=== PATIENT | female | born 1985 | race Caucasian/White ===

== ENCOUNTER → 2017-01-29 | Outpatient (CLI) | payer OTHER ==
[2017-01-29 14:29] LABS: CH 29.5; CHCM 35.5; HCT 38.2 % (34.0-46.0); HDW 2.69; HGB 13.4 gm/dL (11.4-16.0); MCH 29.2 pg (25.0-35.0); MCV 83.4 fL (80.0-100.0); Mean Platelet Volume 7.2; RBC 4.58 m/uL (3.80-5.40); RDW 12.1 % (11.5-15.5); WBC 13.1 k/uL (3.8-10.6)
[2017-01-29 14:45] LABS: Glucose 101 mg/dL (74-99); Non-African American GFR(MDRD) >60 (>60 ml/min/1.73 sqM)
--- NOTE | 2017-01-29 15:11 | US ---
EXAMINATION TYPE: US OB <=14 wks transvag DATE OF EXAM: 01/29/2017 1:41 PM COMPARISON: NONE CLINICAL HISTORY: 31-year-old female with O46.91 Spotting. Date of LMP: 12/05/16 Beta HcG (if available): not available EXAM PERFORMED: Transvaginal (TV) and Transabdominal (TA) FINDINGS: EXAM MEASUREMENTS: GESTATIONAL AGE / DATING Physician Established: not yet established Dates by LMP: (7 weeks/6 days) EDC: 09/11/17 Dates by First Scan: 1st scan today Dates by Current Scan for: (7 weeks/1 days +/- 5D) EDC: 09/16/17 MATERNAL ANATOMY Uterus: 9.4 x 5.3 x 5.8cm Right Ovary: 2.4 x 2.0 x 2.1cm Left Ovary: not visualized Post CDS / Adnexa: wnl Presence of subchorionic bleed: Small measuring 1.0 x 0.3 x 1.5cm along the caudal margin of the gest ational sac. GESTATION / SURVEY CRL: 1.1 (7 weeks/1 days) MSD: Visually normal Yolk Sac (normal less than 6mm): 2.2 mm Heart Rate: 144 bpm Rhythm: Normal IUP: Viable IUP IMPRESSION: 1. Single live intrauterine with estimated gestational age of 7 weeks 6 days by LMP. Curren t ultrasound biometry is smaller and just barely concordant (7 weeks 1 day). Correlate for accuracy o f recall of LMP. 2. Small perigestational bleed. 3. Complete survey recommended at 18-20 weeks.
[2017-01-29 15:16] LABS: Hepatitis B Surface Ag Index 0.09
[2017-01-30 05:55] LABS: Toxoplasma Antibody (IgG) <3.0 IU/mL (<7.2)
[2017-01-30 07:44] LABS: HIV-1/HIV-2 Ab Screen NONREAC (NON REAC)
== END ==
LOC: RADUSWWP 12:53
PROVIDERS: ATTEND Obstetrics & Gynecology
DX: O46.91 Antepartum hemorrhage, unspecified, first trimester (principal)
CPT/HCPCS: 76801; 76817; 82565; 82947; 85027; 86762; 86777; 86778; 86780; 86850; 86900; 86901; 87340; 87389

== ENCOUNTER 2017-03-20 12:59 | Emergency (ER) | payer OTHER ==
[2017-03-20 13:27] VITALS: RESP 18
[2017-03-20] MEDS ORDERED: ALBUTEROL NEBULIZED 2.5 MG/3 ML INHALATION STA (13:45)
--- NOTE | 2017-03-20 13:56 | ED ---
SOB HPI - General Chief Complaint: Shortness of Breath Stated Complaint: SOB/Vomiting Time Seen by Provider: 03/20/17 13:33 Source: patient Mode of arrival: ambulatory Limitations: no limitations - History of Present Illness Initial Comments: This patient is a 31-year-old woman who presents because she feels she is having an asthma exacerbation. She states that about 4 days ago she started having upper respiratory symptoms, including cough and congestion. She was seen at an urgent care and she was started on azithromycin. She states that she is now on day 3 of that. Over the course of the past night into this morning she feels she is having increasing wheezing and chest tightness. She states that she also has a little bit of sputum production, being yellow. She is denying pain. Patient does state that she is proximal 14 weeks . She has not had any abdominal symptoms. No vaginal discharge or bleeding. No leg pain or swelling. MD Complaint: shortness of breath, cough, "asthma attack" Onset/Timin -: days(s) Consistency: constant Improves With: nothing Worsens With: exertion Known History Of: asthma Associated Symptoms: sputum production Treatments Prior to Arrival: none - Related Data Home Medications Medication Instructions Recorded Confirmed Albuterol Inhaler [Ventolin Hfa 2 puff INHALATION DIRECTED PRN 01/13/1601/12 Inhaler] Previous Rx's Medication Instructions Recorded Albuterol Inhaler [Ventolin Hfa 1 - 2 puff INHALATION Q6HR PRN #1 03/20/17 Inhaler] inhaler predniSONE 20 mg PO BID #8 tab 03/20/17 Allergies Allergy/AdvReac Type Severity Reaction Status Date / Time Penicillins Allergy Rash/Hives Verified 03/20/17 13:27 Review of Systems ROS Statement: Those systems with pertinent positive or pertinent negative responses have been documented in the HPI. ROS Other: All systems not noted in ROS Statement are negative. Constitutional: Denies: fever, chills, weakness Respiratory: Reports: cough, wheezes. Denies: dyspnea, hemoptysis Cardiovascular: Denies: chest pain, palpitations, edema, syncope Gastrointestinal: Denies: abdominal pain, vomiting Genitourinary: Denies: dysuria, hematuria, discharge, abnormal menses Musculoskeletal: Denies: back pain Skin: Denies: rash Neurological: Denies: headache Past Medical History Past Medical History: No Reported History History of Any Multi-Drug Resistant Organisms: None Reported Past Surgical History: No Surgical Hx Reported Past Psychological History: Anxiety Smoking Status: Never smoker Past Alcohol Use History: None Reported, Occasional Past Drug Use History: None Reported, Marijuana General Exam Limitations: no limitations General appearance: alert, in no apparent distress Head exam: Present: atraumatic, normocephalic Respiratory exam: Present: wheezes. Absent: respiratory distress, rales, rhonchi, stridor Cardiovascular Exam: Present: regular rate, normal rhythm, normal heart sounds. Absent: systolic murmur, diastolic murmur, rubs, gallop GI/Abdominal exam: Present: soft. Absent: distended, tenderness, guarding, rebound, mass Extremities exam: Present: normal inspection, normal capillary refill. Absent: pedal edema, calf tenderness Neurological exam: Present: alert Skin exam: Present: warm, dry, intact, normal color. Absent: rash Course Vital Signs 03/20/17 03/20/17 03/20/17 13:24 13:56 14:01 Temperature 98.9 F Pulse Rate 93 75 93 Respiratory 18 18 Rate Blood Pressure 125/67 121/75 O2 Sat by Pulse 98 98 Oximetry Disposition Clinical Impression: Bronchitis Disposition: HOME SELF-CARE Condition: Good Instructions: Acute Bronchitis (ED) Prescriptions: Albuterol Inhaler [Ventolin Hfa Inhaler] 1 - 2 puff INHALATION Q6HR PRN #1 inhaler PRN Reason: Wheezing predniSONE 20 mg PO BID #8 tab Referrals: Nathan Romo MD [Primary Care Provider] - 1-2 days
[2017-03-20 14:21] VITALS: BP 122/73; PULSE 95; TEMP 97.2
== END 2017-03-20 14:28 | disposition home or self-care (01) ==
LOC: EC 12:59
DX: J40 Bronchitis, not specified as acute or chronic (principal); Z88.0 Allergy status to penicillin
CPT/HCPCS: 94640; 99284

== ENCOUNTER → 2017-03-25 | Outpatient (CLI) | payer OTHER ==
[2017-03-26 11:40] LABS: Alpha Fetoprotein 32.6 ng/mL; Alpha Fetoprotein (M.O.M) 1.31 (Negative); B-HCG (M.O.M.) 0.73; Gestational Age (days) 0; Human Chorionic Gonadotropin 32.6 IU/mL; Inhibin A (M.O.M.) 1.12; Interpretation SeeBelow; Maternal Age at EDD (Yrs) 30; Unconjugated Estriol (M.O.M.) 0.73
== END | disposition home or self-care (01) ==
LOC: LABWHC1 12:02
PROVIDERS: ATTEND Obstetrics & Gynecology
DX: Z34.02 Encounter for supervision of normal first pregnancy, second trimester (principal); Z3A.00 Weeks of gestation of pregnancy not specified
CPT/HCPCS: 36415; 82105; 82677; 84702; 86336

== ENCOUNTER 2017-05-24 02:42 | Emergency (ER) | payer OTHER ==
[2017-05-24] MEDS ORDERED: MORPHINE SULFATE 4 MG/ML SYRINGE IV STA (03:05)
[2017-05-24] MEDS ORDERED: SODIUM CHLORIDE 0.9% 500 ML IV STA (03:05)
--- NOTE | 2017-05-24 03:11 | ED ---
Back Pain HPI - General Source: patient Limitations: no limitations - History of Present Illness Complaint: back pain Onset/Timin -: minutes(s) Similar Symptoms Previously: Yes Place: home Radiation: none Severity: severe Quality: sharp, aching Consistency: constant Improves With: none Worsens With: none Associated Symptoms: numbness, diaphoresis <Cleveland Simpson - Last Filed: 05/24/17 07:16> <Luciano Merchant - Last Filed: 05/24/17 08:31> - General Chief Complaint: Back Pain/Injury Stated Complaint: KIDNEY PAIN Time Seen by Provider: 05/24/17 02:52 - History of Present Illness Initial Comments: This patient is a 31-year-old woman who presents to be evaluated for left flank pain that started about 45 minutes ago while she was resting. The patient describes a sharp and aching pain to the left flank that has now started radiating towards the left lower. It is constant she ranks it severe intensity. Patient states that she also feels like she needs to urinate constantly though she is only able to produce a few drops. She also felt " sweat was coming on. Patient states this is somewhat similar to when she had pyelonephritis during her last . Patient states she is 24 weeks and that she sees Dr. Domingo. She denies fever. She denies chest pain or dyspnea. She has not had leg pain or swelling. She denies any vaginal discharge. She denies a feeling of abdominal cramping. The patient states that she does feel movement. (Cleveland Simpson) - Related Data Home Medications Medication Instructions Recorded Confirmed Pnv,Calcium 72/Iron/Folic Acid 1 tab PO DAILY 03/20/17 05/24/17 [ Plus Tablet] Albuterol Inhaler [Ventolin Hfa 1 - 2 puff INHALATION RT-QID PRN 05/24/17 Inhaler] Allergies Allergy/AdvReac Type Severity Reaction Status Date / Time amoxicillin Allergy Rash/Hives Verified 05/24/17 08:03 Penicillins Allergy Rash/Hives Verified 05/24/17 08:03 Review of Systems ROS Other: All systems not noted in ROS Statement are negative. Constitutional: Denies: fever, chills Respiratory: Denies: cough, dyspnea Cardiovascular: Denies: chest pain, palpitations, edema, syncope Gastrointestinal: Reports: as per HPI, abdominal pain (Left flank pain). Denies : vomiting, diarrhea, constipation Genitourinary: Reports: urgency, frequency. Denies: dysuria, hematuria, discharge, abnormal menses Musculoskeletal: Reports: as per HPI, back pain Skin: Denies: rash Neurological: Denies: headache, weakness, numbness <TatianaCleveland - Last Filed: 05/24/17 07:16> ROS Other: All systems not noted in ROS Statement are negative. <Luciano Merchant - Last Filed: 05/24/17 08:31> ROS Statement: Those systems with pertinent positive or pertinent negative responses have been documented in the HPI. Past Medical History Past Medical History: Asthma Additional Past Medical History / Comment(s): pyelonephritis History of Any Multi-Drug Resistant Organisms: None Reported Past Surgical History: No Surgical Hx Reported Past Psychological History: Anxiety Smoking Status: Never smoker Past Alcohol Use History: None Reported Past Drug Use History: None Reported <TatianaCleveland - Last Filed: 05/24/17 07:16> General Exam Limitations: no limitations General appearance: alert, in distress Head exam: Present: atraumatic, normocephalic Eye exam: Present: normal appearance. Absent: scleral icterus, conjunctival injection Neck exam: Present: normal inspection Respiratory exam: Present: normal lung sounds bilaterally. Absent: respiratory distress, wheezes, rales, rhonchi, stridor Cardiovascular Exam: Present: regular rate, normal rhythm, normal heart sounds. Absent: systolic murmur, diastolic murmur, rubs, gallop GI/Abdominal exam: Present: soft, mass (Gravid uterus palpable to above the umbilicus. There are palpable movements). Absent: distended, tenderness , guarding, rebound, rigid, bruit, pulsatile mass, hernia Extremities exam: Present: normal inspection, normal capillary refill, pedal edema (Trace edema bilaterally at the ankles). Absent: calf tenderness Back exam: Present: normal inspection. Absent: CVA tenderness (R), CVA tenderness (L), paraspinal tenderness, vertebral tenderness Neurological exam: Present: alert Skin exam: Present: warm, dry, intact, normal color. Absent: rash <TatianaCleveland - Last Filed: 05/24/17 07:16> Course <TatianaCleveland - Last Filed: 05/24/17 07:16> <Luciano Merchant - Last Filed: 05/24/17 08:31> Vital Signs 05/24/17 05/24/17 05/24/17 02:44 03:23 04:07 Temperature 98.0 F 97.9 F Pulse Rate 90 85 95 Respiratory 18 20 20 Rate Blood Pressure 108/59 95/52 113/79 O2 Sat by Pulse 100 97 98 Oximetry 05/24/17 05/24/17 05/24/17 05:17 06:15 07:47 Temperature 97.1 F L 97.1 F L 98.9 F Pulse Rate 80 89 89 Respiratory 20 16 16 Rate Blood Pressure 109/62 104/61 131/69 O2 Sat by Pulse 98 94 L 99 Oximetry - Reevaluation(s) Reevaluation #1: 05/24/17 08:29 The patient was endorsed to me at our shift change. Pending ultrasound. Ultrasound shows mild bilateral pelvicaliectasis. Patient will be sent to labor and delivery for monitoring she is 24 weeks currently she is pain -free and was able urinate without difficulty. The case previously been discussed with Dr. Singer by Dr. Simpson. (Luciano Merchant) Medical Decision Making - Lab Data Result diagrams: 05/24/17 03:10 05/24/17 03:10 <Cleveland Simpson - Last Filed: 05/24/17 07:16> - Lab Data Result diagrams: 05/24/17 03:10 05/24/17 03:10 <Luciano Merchant - Last Filed: 05/24/17 08:31> - Medical Decision Making This patient is 31-year-old woman presenting with left flank pain the history and physical are strongly suggestive of kidney stone. There is moderate amount of hematuria. The patient is going for ultrasound. I discussed case with Dr. Singer, who requests that the patient then go to labor and delivery for further evaluation and treatment if the ultrasound does confirm kidney stone. ( Cleveland Simpson) - Lab Data Lab Results 05/24/17 05/24/17 05/24/17 Range/Units 03:10 03:10 03:10 WBC 14.9 H (3.8-10.6) k/uL RBC 4.10 (3.80-5.40) m/uL Hgb 12.5 (11.4-16.0) gm/dL Hct 34.8 (34.0-46.0) % MCV 84.9 (80.0-100.0) fL MCH 30.4 (25.0-35.0) pg MCHC 35.8 (31.0-37.0) g/dL RDW 13.1 (11.5-15.5) % Plt Count 268 (150-450) k/uL Neutrophils % 75 % Lymphocytes % 15 % Monocytes % 4 % Eosinophils % 3 % Basophils % 0 % Neutrophils # 11.2 H (1.3-7.7) k/uL Lymphocytes # 2.3 (1.0-4.8) k/uL Monocytes # 0.6 (0-1.0) k/uL Eosinophils # 0.4 (0-0.7) k/uL Basophils # 0.0 (0-0.2) k/uL Sodium 136 L (137-145) mmol/L Potassium 3.6 (3.5-5.1) mmol/L Chloride 109 H (98-107) mmol/L Carbon Dioxide 18 L (22-30) mmol/L Anion Gap 9 mmol/L BUN 9 (7-17) mg/dL Creatinine 0.60 (0.52-1.04) mg/dL Est GFR (MDRD) Af Amer >60 (>60 ml/min/1.73 sqM) Est GFR (MDRD) Non-Af >60 (>60 ml/min/1.73 sqM) Glucose 92 (74-99) mg/dL Uric Acid 4.3 (3.7-7.4) mg/dL Calcium 9.0 (8.4-10.2) mg/dL Total Bilirubin 0.3 (0.2-1.3) mg/dL AST 16 (14-36) U/L ALT 30 (9-52) U/L Alkaline Phosphatase 61 (38-126) U/L Total Protein 5.7 L (6.3-8.2) g/dL Albumin 3.4 L (3.5-5.0) g/dL Urine Color Urine Appearance (Clear) Urine pH (5.0-8.0) Ur Specific [place] (1.001-1.035) Urine Protein (Negative) Urine Glucose (UA) (Negative) Urine Ketones (Negative) Urine Blood (Negative) Urine Nitrite (Negative) Urine Bilirubin (Negative) Urine Urobilinogen (<2.0) mg/dL Ur Leukocyte Esterase (Negative) Urine RBC (0-5) /hpf Urine WBC (0-5) /hpf Ur Squamous Epith Cells (0-4) /hpf Urine Mucus (None) /hpf 05/24/17 Range/Units 04:06 WBC (3.8-10.6) k/uL RBC (3.80-5.40) m/uL Hgb (11.4-16.0) gm/dL Hct (34.0-46.0) % MCV (80.0-100.0) fL MCH (25.0-35.0) pg MCHC (31.0-37.0) g/dL RDW (11.5-15.5) % Plt Count (150-450) k/uL Neutrophils % % Lymphocytes % % Monocytes % % Eosinophils % % Basophils % % Neutrophils # (1.3-7.7) k/uL Lymphocytes # (1.0-4.8) k/uL Monocytes # (0-1.0) k/uL Eosinophils # (0-0.7) k/uL Basophils # (0-0.2) k/uL Sodium (137-145) mmol/L Potassium (3.5-5.1) mmol/L Chloride (98-107) mmol/L Carbon Dioxide (22-30) mmol/L Anion Gap mmol/L BUN (7-17) mg/dL Creatinine (0.52-1.04) mg/dL Est GFR (MDRD) Af Amer (>60 ml/min/1.73 sqM) Est GFR (MDRD) Non-Af (>60 ml/min/1.73 sqM) Glucose (74-99) mg/dL Uric Acid (3.7-7.4) mg/dL Calcium (8.4-10.2) mg/dL Total Bilirubin (0.2-1.3) mg/dL AST (14-36) U/L ALT (9-52) U/L Alkaline Phosphatase (38-126) U/L Total Protein (6.3-8.2) g/dL Albumin (3.5-5.0) g/dL Urine Color Yellow Urine Appearance Clear (Clear) Urine pH 5.5 (5.0-8.0) Ur Specific [place] 1.021 (1.001-1.035) Urine Protein Trace H (Negative) Urine Glucose (UA) Negative (Negative) Urine Ketones Negative (Negative) Urine Blood Small H (Negative) Urine Nitrite Negative (Negative) Urine Bilirubin Negative (Negative) Urine Urobilinogen <2.0 (<2.0) mg/dL Ur Leukocyte Esterase Negative (Negative) Urine RBC 30 H (0-5) /hpf Urine WBC 1 (0-5) /hpf Ur Squamous Epith Cells 2 (0-4) /hpf Urine Mucus Few H (None) /hpf Disposition <Cleveland Simpson - Last Filed: 05/24/17 07:16> - Out of Hospital Transfer - Req. Specs Out of Hospital Transfer - Requested Specifics: Other Emergency Center <Luciano Merchant - Last Filed: 05/24/17 08:31> Clinical Impression: Calculus of kidney Disposition: OTHER INSTITUTION NOT DEFINED Condition: Fair Instructions: Kidney Stones (ED) Additional Instructions: To labor and delivery for monitoring Referrals: Rahat Lara Jr, DO [Primary Care Provider] - 1-2 days Nini Domingo DO [Doctor of Osteopathic Medicine] - 1-2 days
[2017-05-24] MEDS ORDERED: diphenhydrAMINE 50 MG/ML 1 ML VIAL IVP STA (03:28)
[2017-05-24 03:31] LABS: Basophils % (A) 0 %; CH 29.8; CHCM 35.3; Eosinophils # (A) 0.4 k/uL (0-0.7); Eosinophils % (A) 3 %; HCT 34.8 % (34.0-46.0); HDW 2.71; HGB 12.5 gm/dL (11.4-16.0); Luc # (Auto) 0.36; Luc % (Auto) 2; Lymphocytes # (A) 2.3 k/uL (1.0-4.8); Lymphocytes % (A) 15 %; MCH 30.4 pg (25.0-35.0); MCHC 35.8 g/dL (31.0-37.0); MCV 84.9 fL (80.0-100.0); Mean Platelet Volume 6.9; Monocytes # (A) 0.6 k/uL (0-1.0); Monocytes % (A) 4 %; Neutrophils # (A) 11.2 k/uL (1.3-7.7); Neutrophils % (A) 75 %; RDW 13.1 % (11.5-15.5); WBC 14.9 k/uL (3.8-10.6); WBC (Perox) 15.49
[2017-05-24] MEDS ORDERED: HYDROmorphone 1 MG/ML 1 ML SYRINGE IVP STA ×2 (03:38→05:13)
[2017-05-24 03:43] LABS: ALT 30 U/L (9-52); AST 16 U/L (14-36); Alkaline Phosphatase 61 U/L (38-126); Anion Gap 9 mmol/L; Blood Urea Nitrogen 9 mg/dL (7-17); Carbon Dioxide 18 mmol/L (22-30); Chloride 109 mmol/L (98-107); Glucose 92 mg/dL (74-99); Non-African American GFR(MDRD) >60 (>60 ml/min/1.73 sqM); Potassium 3.6 mmol/L (3.5-5.1); Sodium 136 mmol/L (137-145); Total Bilirubin 0.3 mg/dL (0.2-1.3); Total Protein 5.7 g/dL (6.3-8.2)
[2017-05-24 04:27] LABS: Appearance,Urine Clear (Clear); Bilirubin,Urine Negative (Negative); Glucose,Urine (UA) Negative (Negative); Ketones,Urine Negative (Negative); Leukocyte Esterase,Urine Negative (Negative); Mucus,Urine Few /hpf; Nitrite,Urine Negative (Negative); PH, Urine 5.5 (5.0-8.0); Particle Count 5631; Protein,Urine Trace (Negative); RBC,Urine 30 /hpf (0-5); Specific Gravity,Urine 1.021 (1.001-1.035); Squamous Epithelial Cell,Urine 2 /hpf (0-4); UA Billing (MACRO vs. MICRO) MICRO; Urobilinogen,Urine <2.0 mg/dL (<2.0); WBC,Urine 1 /hpf (0-5)
[2017-05-24 06:16] VITALS: RESP 16
--- NOTE | 2017-05-24 08:09 | US ---
EXAMINATION TYPE: US kidneys/renal and bladder DATE OF EXAM: 05/24/2017 COMPARISON: NONE CLINICAL HISTORY: 31-year-old female with L flank pain. Left side pain. Patient is 24 weeks . TECHNIQUE: Multiple sonographic images of the kidneys and bladder are obtained. FINDINGS: EXAM MEASUREMENTS: Right Kidney: 11.5 x 5.0 x 4.7 cm Left Kidney: 12.2 x 4.6 x 4.4 cm There is mild bilateral pelvicaliectasis. No gross abnormality of the urine distended bladder.Bilateral Jets seen IMPRESSION: Mild bilateral pelvicaliectasis. Both ureteral jets are seen.
[2017-05-24 08:45] VITALS: BP 117/63; PULSE 96; TEMP 97.9
== END 2017-05-24 08:44 | disposition short-term general hospital (02) ==
LOC: EC 02:42
DX: O99.89 Other specified diseases and conditions complicating pregnancy, childbirth and the puerperium (principal); N20.0 Calculus of kidney; Z87.448 Personal history of other diseases of urinary system; Z88.0 Allergy status to penicillin; Z3A.24 24 weeks gestation of pregnancy; Z79.899 Other long term (current) drug therapy
CPT/HCPCS: 99285; 96374; 96375 ×2; 96376; 96361; 36415; 80053; 84550; 85025; 81001; 76770; J2270; J1200; J1170

== ENCOUNTER 2017-05-24 08:43 | Outpatient (CLI) | payer OTHER ==
--- NOTE | 2017-07-10 17:42 | P.MSEPDOC ---
Presenting Problems - Arrival Data Date of Arrival on Unit: 05/24/17 Time of Arrival on Unit: 08:43 Mode of Transport: Wheelchair Medical History - Information : 1 Para: 0 Term: 0 : 0 Abortions: Spontaneous or Elective: 0 Number of Living Children: 0 Disposition - Disposition Discharge Date: 05/24/17 Discharge Time: 09:17 I agree with the RN Medical Screening Exam: Yes Risk & Benefit of care provided described in d/c instruction: Yes Diagnosis: UNSPECIFIED ABDOMINAL PAIN
== END 2017-05-24 09:17 | disposition home or self-care (01) ==
LOC: FBPOP 08:43
PROVIDERS: ATTEND Obstetrics & Gynecology
DX: O99.89 Other specified diseases and conditions complicating pregnancy, childbirth and the puerperium (principal); R10.9 Unspecified abdominal pain; Z3A.24 24 weeks gestation of pregnancy
CPT/HCPCS: 99213

== ENCOUNTER → 2017-05-28 | Outpatient (CLI) | payer OTHER ==
[2017-05-28 13:02] LABS: CH 29.9; CHCM 34.6; HDW 2.61; MCH 29.9 pg (25.0-35.0); MCHC 34.4 g/dL (31.0-37.0); MCV 86.8 fL (80.0-100.0); RBC 4.03 m/uL (3.80-5.40); RDW 13.1 % (11.5-15.5); WBC 15.5 k/uL (3.8-10.6)
== END | disposition home or self-care (01) ==
LOC: LABWHC1 11:33
PROVIDERS: ATTEND Obstetrics & Gynecology
DX: Z34.02 Encounter for supervision of normal first pregnancy, second trimester (principal)
CPT/HCPCS: 36415; 82950; 85027; 86850; 86900; 86901

== ENCOUNTER → 2017-06-12 | Outpatient (CLI) | payer OTHER ==
[2017-06-12 11:55] LABS: Glucose 3 Hour, Gest 58 mg/dL
== END | disposition home or self-care (01) ==
LOC: LABWHC1 07:10
PROVIDERS: ATTEND Obstetrics & Gynecology
DX: O99.810 Abnormal glucose complicating pregnancy (principal); Z3A.00 Weeks of gestation of pregnancy not specified
CPT/HCPCS: 36415; 82951; 82952

== ENCOUNTER 2017-06-14 20:55 | Emergency (ER) | payer OTHER ==
[2017-06-14] MEDS ORDERED: SODIUM CHLORIDE 0.9% 500 ML IV STA (21:36)
[2017-06-14] MEDS ORDERED: METOCLOPRAMIDE 5 MG/ML 2 ML VIAL IVP STA (21:37)
[2017-06-14] MEDS ORDERED: ALBUTEROL NEBULIZED 2.5 MG/3 ML INHALATION STA (21:45)
[2017-06-14 21:51] LABS: Glucose,Whole Blood 89 mg/dL (75-99)
--- NOTE | 2017-06-14 21:55 | ED ---
Dizziness HPI - General Chief Complaint: Dizziness Stated Complaint: dizzy/lightheaded Time Seen by Provider: 06/14/17 21:24 Source: patient Mode of arrival: ambulatory Limitations: no limitations - History of Present Illness Initial Comments: Hus[place] female patient presented to emergency department today for evaluation of right arm pain and dizziness. Patient states that she had her 3 hour glucose test for had some blood drawn, states that ever since the area has been very painful, she has red streaking down her arm, and the area feels swollen. Patient states that today she did develop a frontal headache, some mild dizziness, and has general malaise. Patient states the dizziness is worse when she stood up. She states it felt like the room was spinning. Patient is 27 weeks . She denies any nausea, vomiting, fever, chills, abdominal pain, constipation, diarrhea, dysuria, urinary frequency, urinary urgency, abdominal cramping, vaginal bleeding, or vaginal discharge. Has a cough, congestion, nasal congestion, or ear pain. She does have mild shortness of breath and wheezing related to asthma. As her asthma has been worsening she has made an appointment with her primary care physician for this. - Related Data Home Medications Medication Instructions Recorded Confirmed Pnv,Calcium 72/Iron/Folic Acid 1 tab PO DAILY 03/20/17 06/14/17 [ Plus Tablet] Albuterol Inhaler [Ventolin Hfa 1 - 2 puff INHALATION RT-QID PRN 05/24/17 Inhaler] Previous Rx's Medication Instructions Recorded Cephalexin [Keflex] 500 mg PO Q8HR #21 cap 06/14/17 Allergies Allergy/AdvReac Type Severity Reaction Status Date / Time amoxicillin Allergy Rash/Hives Verified 06/14/17 21:29 Penicillins Allergy Rash/Hives Verified 06/14/17 21:29 Review of Systems ROS Statement: Those systems with pertinent positive or pertinent negative responses have been documented in the HPI. ROS Other: All systems not noted in ROS Statement are negative. Past Medical History Past Medical History: Asthma Additional Past Medical History / Comment(s): pyelonephritis History of Any Multi-Drug Resistant Organisms: None Reported Past Surgical History: No Surgical Hx Reported Past Psychological History: Anxiety Smoking Status: Former smoker General Exam Limitations: no limitations General appearance: alert, in no apparent distress Head exam: Present: atraumatic, normocephalic, normal inspection Eye exam: Present: normal appearance, PERRL, EOMI. Absent: scleral icterus, conjunctival injection, periorbital swelling ENT exam: Present: normal exam, normal oropharynx, mucous membranes moist, TM's normal bilaterally Neck exam: Present: normal inspection. Absent: tenderness, meningismus, lymphadenopathy Respiratory exam: Present: normal lung sounds bilaterally, wheezes (Scattered expiratory). Absent: respiratory distress, rales, rhonchi, stridor Cardiovascular Exam: Present: regular rate, normal rhythm, normal heart sounds. Absent: systolic murmur, diastolic murmur, rubs, gallop, clicks GI/Abdominal exam: Present: soft, normal bowel sounds, other (Gravid abdomen). Absent: distended, tenderness, guarding, rebound, rigid Extremities exam: Present: full ROM, tenderness (Tenderness over the proximal volar aspect of the forearm, tenderness over the antecubital fossa), normal capillary refill. Absent: normal inspection (Red streaking noted from puncture site at antecubital fossa extending distally.), pedal edema, joint swelling, calf tenderness Neurological exam: Present: alert, oriented X3, CN II-XII intact Psychiatric exam: Present: normal affect, normal mood Skin exam: Present: warm, dry, intact, normal color. Absent: rash Course Vital Signs 06/14/17 06/14/17 06/14/17 20:59 22:07 22:16 Temperature 97.4 F L Pulse Rate 98 96 104 H Respiratory 16 Rate Blood Pressure 122/74 O2 Sat by Pulse 98 Oximetry 06/14/17 23:04 Temperature 97.6 F Pulse Rate 83 Respiratory 18 Rate Blood Pressure 116/64 O2 Sat by Pulse 96 Oximetry EKG Findings - EKG Comments: EKG Findings:: EKG obtained at 2145 reveals sinus tachycardia with a ventricular rate of 102, NH interval 116, QS duration 78, QT 350, QTC 456. Medical Decision Making - Medical Decision Making 31-year-old female patient who is 27 weeks presents to emergency department today for dizziness and right arm pain. Patient did have venipuncture and physical exam did reveal some evidence for phlebitis. Ultrasound of the right upper x-ray was negative for any DVT. Lab work was performed and did show some ketones in the urine. heart tones are 150. Patient was hydrated with 1 L of normal saline. Patient will be started on Keflex for the phlebitis and discharged home with instructions to follow-up with her primary care physician in one to 2 days. Patient started to return for any new, worsening, or concerning symptoms. Patient verbalizes understanding and agrees with this plan. - Lab Data Result diagrams: 06/14/17 22:00 06/14/17 22:00 Lab Results 06/14/17 06/14/17 06/14/17 Range/Units 21:49 22:00 22:00 WBC 16.2 H (3.8-10.6) k/uL RBC 3.95 (3.80-5.40) m/uL Hgb 11.5 (11.4-16.0) gm/dL Hct 34.1 (34.0-46.0) % MCV 86.2 (80.0-100.0) fL MCH 29.2 (25.0-35.0) pg MCHC 33.9 (31.0-37.0) g/dL RDW 13.8 (11.5-15.5) % Plt Count 241 (150-450) k/uL Neutrophils % 79 % Lymphocytes % 13 % Monocytes % 4 % Eosinophils % 2 % Basophils % 0 % Neutrophils # 12.8 H (1.3-7.7) k/uL Lymphocytes # 2.1 (1.0-4.8) k/uL Monocytes # 0.7 (0-1.0) k/uL Eosinophils # 0.3 (0-0.7) k/uL Basophils # 0.0 (0-0.2) k/uL Sodium 137 (137-145) mmol/L Potassium 3.6 (3.5-5.1) mmol/L Chloride 108 H (98-107) mmol/L Carbon Dioxide 18 L (22-30) mmol/L Anion Gap 11 mmol/L BUN 8 (7-17) mg/dL Creatinine 0.50 L (0.52-1.04) mg/dL Est GFR (MDRD) Af Amer >60 (>60 ml/min/1.73 sqM) Est GFR (MDRD) Non-Af >60 (>60 ml/min/1.73 sqM) Glucose 78 (74-99) mg/dL POC Glucose (mg/dL) 89 (75-99) mg/dL POC Glu Returner ID Kercher, Evelyn Calcium 9.2 (8.4-10.2) mg/dL Total Bilirubin 0.3 (0.2-1.3) mg/dL AST 17 (14-36) U/L ALT 27 (9-52) U/L Alkaline Phosphatase 73 (38-126) U/L Total Protein 5.8 L (6.3-8.2) g/dL Albumin 3.5 (3.5-5.0) g/dL Urine Color Urine Appearance (Clear) Urine pH (5.0-8.0) Ur Specific [place] (1.001-1.035) Urine Protein (Negative) Urine Glucose (UA) (Negative) Urine Ketones (Negative) Urine Blood (Negative) Urine Nitrite (Negative) Urine Bilirubin (Negative) Urine Urobilinogen (<2.0) mg/dL Ur Leukocyte Esterase (Negative) 06/14/17 Range/Units 22:00 WBC (3.8-10.6) k/uL RBC (3.80-5.40) m/uL Hgb (11.4-16.0) gm/dL Hct (34.0-46.0) % MCV (80.0-100.0) fL MCH (25.0-35.0) pg MCHC (31.0-37.0) g/dL RDW (11.5-15.5) % Plt Count (150-450) k/uL Neutrophils % % Lymphocytes % % Monocytes % % Eosinophils % % Basophils % % Neutrophils # (1.3-7.7) k/uL Lymphocytes # (1.0-4.8) k/uL Monocytes # (0-1.0) k/uL Eosinophils # (0-0.7) k/uL Basophils # (0-0.2) k/uL Sodium (137-145) mmol/L Potassium (3.5-5.1) mmol/L Chloride (98-107) mmol/L Carbon Dioxide (22-30) mmol/L Anion Gap mmol/L BUN (7-17) mg/dL Creatinine (0.52-1.04) mg/dL Est GFR (MDRD) Af Amer (>60 ml/min/1.73 sqM) Est GFR (MDRD) Non-Af (>60 ml/min/1.73 sqM) Glucose (74-99) mg/dL POC Glucose (mg/dL) (75-99) mg/dL POC Glu Returner ID Calcium (8.4-10.2) mg/dL Total Bilirubin (0.2-1.3) mg/dL AST (14-36) U/L ALT (9-52) U/L Alkaline Phosphatase (38-126) U/L Total Protein (6.3-8.2) g/dL Albumin (3.5-5.0) g/dL Urine Color Light Yellow Urine Appearance Clear (Clear) Urine pH 6.0 (5.0-8.0) Ur Specific [place] 1.006 (1.001-1.035) Urine Protein Negative (Negative) Urine Glucose (UA) Negative (Negative) Urine Ketones 2+ H (Negative) Urine Blood Negative (Negative) Urine Nitrite Negative (Negative) Urine Bilirubin Negative (Negative) Urine Urobilinogen <2.0 (<2.0) mg/dL Ur Leukocyte Esterase Negative (Negative) - Radiology Data Radiology results: report reviewed, image reviewed US venous right upper extremity reveals no sonographic evidence for DVT dictate by Dr. Peng. Disposition Clinical Impression: Phlebitis, Dizziness Disposition: HOME SELF-CARE Condition: Good Instructions: Dizziness (ED) Additional Instructions: Apply warm compresses to right arm. Complete antibiotic prescription and full. Increase fluid intake. Follow-up with primary care physician in one to 2 days for recheck. Return for any new, worsening, or concerning symptoms. Prescriptions: Cephalexin [Keflex] 500 mg PO Q8HR #21 cap Referrals: Rahat Lara Jr, [Primary Care Provider] - 1-2 days Time of Disposition: 23:24
[2017-06-14 22:18] LABS: Appearance,Urine Clear (Clear); Basophils % (A) 0 %; Bilirubin,Urine Negative (Negative); CH 30.5; CHCM 35.5; Eosinophils # (A) 0.3 k/uL (0-0.7); Eosinophils % (A) 2 %; Glucose,Urine (UA) Negative (Negative); HCT 34.1 % (34.0-46.0); HDW 2.62; HGB 11.5 gm/dL (11.4-16.0); Ketones,Urine 2+ (Negative); Leukocyte Esterase,Urine Negative (Negative); Luc # (Auto) 0.27; Luc % (Auto) 2; Lymphocytes # (A) 2.1 k/uL (1.0-4.8); Lymphocytes % (A) 13 %; MCH 29.2 pg (25.0-35.0); MCHC 33.9 g/dL (31.0-37.0); MCV 86.2 fL (80.0-100.0); Mean Platelet Volume 7.1; Monocytes # (A) 0.7 k/uL (0-1.0); Monocytes % (A) 4 %; Neutrophils # (A) 12.8 k/uL (1.3-7.7); Neutrophils % (A) 79 %; Nitrite,Urine Negative (Negative); Protein,Urine Negative (Negative); RBC 3.95 m/uL (3.80-5.40); RDW 13.8 % (11.5-15.5); Specific Gravity,Urine 1.006 (1.001-1.035); UA Billing (MACRO vs. MICRO) CHEM; Urobilinogen,Urine <2.0 mg/dL (<2.0); WBC 16.2 k/uL (3.8-10.6)
[2017-06-14 22:28] LABS: ALT 27 U/L (9-52); AST 17 U/L (14-36); Alkaline Phosphatase 73 U/L (38-126); Anion Gap 11 mmol/L; Blood Urea Nitrogen 8 mg/dL (7-17); Calcium 9.2 mg/dL (8.4-10.2); Carbon Dioxide 18 mmol/L (22-30); Chloride 108 mmol/L (98-107); Glucose 78 mg/dL (74-99); Non-African American GFR(MDRD) >60 (>60 ml/min/1.73 sqM); Potassium 3.6 mmol/L (3.5-5.1); Sodium 137 mmol/L (137-145); Total Bilirubin 0.3 mg/dL (0.2-1.3); Total Protein 5.8 g/dL (6.3-8.2)
[2017-06-14] MEDS ORDERED: SODIUM CHLORIDE 0.9% 500 ML IV ONE (22:47)
--- NOTE | 2017-06-14 22:56 | US ---
Exam: US VENOUS RIGHT UPPER EXTREMITY History: Pain. Comparison: None provided. Technique: Grayscale and color images were submitted. Findings: Imaged vessels demonstrate flow and compressibility. No sonographic evidence for DVT appreciated. Impression: No sonographic evidence for DVT.
[2017-06-14 23:04] VITALS: BP 116/64; PULSE 83; RESP 18; TEMP 97.6
== END 2017-06-14 23:35 | disposition home or self-care (01) ==
LOC: EC 20:55
DX: O9A.212 Injury, poisoning and certain other consequences of external causes complicating pregnancy, second trimester (principal); T80.1XXA Vascular complications following infusion, transfusion and therapeutic injection, initial encounter; I80.8 Phlebitis and thrombophlebitis of other sites; O99.89 Other specified diseases and conditions complicating pregnancy, childbirth and the puerperium; R42 Dizziness and giddiness; R00.0 Tachycardia, unspecified; Z3A.27 27 weeks gestation of pregnancy; Z88.0 Allergy status to penicillin; Z79.899 Other long term (current) drug therapy; Z87.891 Personal history of nicotine dependence
CPT/HCPCS: 99284; 96374; 96361; 36415; 94640; 93005; 80053; 85025; 81003; 93971; J2765

== ENCOUNTER 2017-07-26 15:34 | Outpatient (CLI) | payer OTHER ==
[2017-07-26 16:10] LABS: Appearance,Urine Clear (Clear); Bilirubin,Urine Negative (Negative); Glucose,Urine (UA) Negative (Negative); Ketones,Urine Negative (Negative); Leukocyte Esterase,Urine Negative (Negative); Nitrite,Urine Negative (Negative); PH, Urine 6.5 (5.0-8.0); Protein,Urine Negative (Negative); Specific Gravity,Urine 1.004 (1.001-1.035); UA Billing (MACRO vs. MICRO) CHEM; Urobilinogen,Urine <2.0 mg/dL (<2.0)
[2017-07-26 16:19] VITALS: BP 115/65; PULSE 103; RESP 16; TEMP 97.9
--- NOTE | 2017-09-01 21:40 | P.MSEPDOC ---
Presenting Problems - Arrival Data Date of Arrival on Unit: 07/26/17 Time of Arrival on Unit: 15:35 Mode of Transport: Wheelchair - Complaint OB-Reason for Admission/Chief Complaint: Pain Comment: constant pain in abd and back for the last few hours, rating at 6/10 Medical History - Information : 1 Para: 0 Term: 0 : 0 Abortions: Spontaneous or Elective: 0 Number of Living Children: 0 - Gestational Age Gestational Age by SHARA (wks/days): 33 Weeks and 2 Days Review of Systems - Review of Systems Constitutional: No problems Breast: No problems ENT: No problems Cardiovascular: No problems Respiratory: No problems Gastrointestinal: No problems Genitourinary: No problems Musculoskeletal: No problems Neurological: No problems Skin: No problems Vital Signs - Temperature Temperature: 97.9 F Temperature Source: Temporal Artery Scan - Pulse Right Brachial Pulse Rate: 103 Pulse Assessment Method: Automatic Cuff - Respirations Respiratory Rate: 16 Oxygen Delivery Method: Room Air O2 Sat by Pulse Oximetry: 100 - Blood Pressure Right Arm Blood Pressure: 115/65 Blood Pressure Mean: 81 Blood Pressure Source: Automatic Cuff Medical Screen Scoring (Pre) - Cervical Exam Dilation: 0 cm = 0 Membranes: Intact - Uterine Contractions Frequency: N/A Duration: N/A Intensity: N/A - Maternal Vital Signs Maternal Temperature: N/A Signs of Preeclampsia: N/A Maternal Respirations: N/A - Maternal Trauma Maternal Trauma: N/A - Assessment Baseline FHR: 135 Heart Rate - NICHD Category: Category I (Normal) = 0 NST: Reactive Position: N/A Station: N/A - Total Score Total Score (Pre): 0 - Level of Risk Level of Risk: N/A Physician Notification (Pre) - Physician Notified Physician Notified Date: 07/26/17 Physician Notified Time: 16:20 Physician/Practitioner Notifed:: Dr. Hill Spoke With: Dr. Hill New Order Received: Yes - Notification Comment Comment: discharge home, follow up at next scheduled appt Disposition - Disposition OB Disposition: Discharge to home, Written follow up instructions reviewed Discharge Date: 07/26/17 Discharge Time: 16:50 I agree with the RN Medical Screening Exam: No Physician's MSE Comment: incomplete documentation Risk & Benefit of care provided described in d/c instruction: No Diagnosis: UNSPECIFIED ABDOMINAL PAIN
== END 2017-07-26 16:50 | disposition home or self-care (01) ==
LOC: FBPOP 15:34
PROVIDERS: ATTEND Obstetrics & Gynecology Obstetrics
DX: O99.89 Other specified diseases and conditions complicating pregnancy, childbirth and the puerperium (principal); R10.9 Unspecified abdominal pain
CPT/HCPCS: 59025; 81003; G0463; 99213

== ENCOUNTER 2017-09-07 20:05 | Outpatient (CLI) | payer OTHER ==
[2017-09-07 20:40] VITALS: BP 117/66; PULSE 101; RESP 18; TEMP 97.8
--- NOTE | 2017-10-09 13:59 | P.MSEPDOC ---
Presenting Problems - Arrival Data Date of Arrival on Unit: 09/07/17 Time of Arrival on Unit: 20:05 Mode of Transport: Ambulatory - Complaint OB-Reason for Admission/Chief Complaint: Decreased Movement Medical History - Information : 1 Para: 0 Term: 0 : 0 Abortions: Spontaneous or Elective: 0 Number of Living Children: 0 - Gestational Age Gestational Age by SHARA (wks/days): 39 Weeks and 3 Days Review of Systems - Review of Systems Constitutional: No problems Breast: No problems ENT: No problems Cardiovascular: No problems Respiratory: No problems Gastrointestinal: No problems Genitourinary: No problems Musculoskeletal: No problems Neurological: No problems Skin: No problems Vital Signs - Temperature Temperature: 97.8 F Temperature Source: Temporal Artery Scan - Pulse Right Pulse Rate: 101 Pulse Assessment Method: Pulse Oximetry - Respirations Respiratory Rate: 18 Oxygen Delivery Method: Room Air O2 Sat by Pulse Oximetry: 97 - Blood Pressure Right Arm Blood Pressure: 117/66 Blood Pressure Mean: 83 Blood Pressure Source: Automatic Cuff Medical Screen Scoring (Pre) - Cervical Exam Dilation: Exam Deferred Effacement: Exam Deferred Membranes: Intact - Uterine Contractions Frequency: N/A Duration: N/A Intensity: N/A - Maternal Vital Signs Maternal Temperature: N/A Maternal Blood Pressure: N/A Signs of Preeclampsia: N/A Maternal Respirations: N/A - Maternal Trauma Maternal Trauma: N/A - Assessment Baseline FHR: 140 Heart Rate - NICHD Category: Category I (Normal) = 0 NST: Reactive Position: N/A Station: N/A - Total Score Total Score (Pre): 0 - Level of Risk Level of Risk: N/A Physician Notification (Pre) - Physician Notified Physician Notified Date: 09/07/17 Physician Notified Time: 20:29 Physician/Practitioner Notifed:: Dr. Cardoso Spoke With: Dr. Cardoso New Order Received: Yes - Notification Comment Comment: Orders to watch tracing for another acel and then pt is clear for discharge home and to keep follow up appointment in the office on Sep.11. Disposition - Disposition OB Disposition: Discharge to home Discharge Date: 09/07/17 Discharge Time: 20:42 I agree with the RN Medical Screening Exam: Yes Risk & Benefit of care provided described in d/c instruction: Yes Diagnosis: DECREASED MOVEMENTS, THIRD TRIMESTER, FETUS 1
== END 2017-09-07 20:47 | disposition home or self-care (01) ==
LOC: FBPOP 20:05
PROVIDERS: ATTEND Obstetrics & Gynecology Obstetrics
DX: O36.8130 Decreased fetal movements, third trimester, not applicable or unspecified (principal); Z3A.39 39 weeks gestation of pregnancy
CPT/HCPCS: 59025; G0463; 99213

== ENCOUNTER 2017-09-15 02:50 | Inpatient (IN) | payer OTHER ==
[2017-09-15] MEDS ORDERED: LIDOCAINE 1% (PF) 10 MG/ML (30 ML SDV) SQ PRN (03:30)
[2017-09-15] MEDS ORDERED: METHYLERGONOVINE 0.2 MG/ML 1 ML AMP IM PRN (03:30)
[2017-09-15] MEDS ORDERED: TERBUTALINE 1 MG/ML VIAL SQ PRN (03:30)
[2017-09-15] MEDS ORDERED: CARBOPROST TROMETHAMINE 250 MCG/ML 1 ML AMP IM PRN (03:30)
[2017-09-15] MEDS ORDERED: OXYTOCIN 10 UNIT/ML 1 ML VIAL IM PRN (03:30)
[2017-09-15] MEDS: LACTATED RINGERS 1,000 ML IV SCH ×3 (03:50→12:58)
[2017-09-15] MEDS: OXYTOCIN 20 UNITS/1000 ML NS 1,000 ML IV SCH (04:05)
[2017-09-15 04:08] LABS: Basophils % (A) 0 %; CHCM 33.3; Eosinophils # (A) 0.2 k/uL (0-0.7); Eosinophils % (A) 1 %; HCT 38.5 % (34.0-46.0); HDW 2.49; HGB 12.7 gm/dL (11.4-16.0); Luc # (Auto) 0.35; Luc % (Auto) 2; Lymphocytes # (A) 2.1 k/uL (1.0-4.8); Lymphocytes % (A) 10 %; MCH 28.9 pg (25.0-35.0); MCHC 33.1 g/dL (31.0-37.0); MCV 87.5 fL (80.0-100.0); Mean Platelet Volume 7.2; Monocytes # (A) 0.9 k/uL (0-1.0); Monocytes % (A) 4 %; Neutrophils # (A) 16.5 k/uL (1.3-7.7); Neutrophils % (A) 82 %; RBC 4.41 m/uL (3.80-5.40); RDW 14.4 % (11.5-15.5); WBC 20.1 k/uL (3.8-10.6); WBC (Perox) 21.21
[2017-09-15 06:32] VITALS: BMI 78.0
[2017-09-15] MEDS: BUTORPHANOL 1 MG/ML 1 ML VIAL IV PRN ×2 (08:06→10:46)
--- NOTE | 2017-09-15 10:53 | P.HPOB ---
History of Present Illness H&P Date: 09/15/17 this is a 32-year-old white female 1 para 0 EDC 09/11/2017 at 40-4/7 weeks' gestation. Patient presented this morning with a history of spontaneous rupture of membranes, clear fluid at approximately 0130 hours. On admission she was 1 cm dilated, 50% effaced. Fetus is been active throughout the . She denies vaginal bleeding. Past medical history is significant for anxiety, asthma, kidney stones. Past surgical history colposcopy in the past. Current medications albuterol inhaler as needed, vitamin daily. ALLERGIES include penicillin to which reports hives and a rash. Family history significant for diabetes, breast cancer, and schizophrenia. 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 She is a previous smoker of one half pack per day tobacco. history blood type is B-, broke and received. Urine culture, HIV testing, gonorrhea and chlamydia cultures, group B strep cultures all negative. One-hour Glucola 141, 3 hour GTT within normal limits. Rubella status immune. On exam this is a pleasant female, 5 foot 7 inches, 226 pounds, blood pressure on admission 126/78, vital signs stable. The general physical exam is within normal limits. The extremities reveal no edema. The chest is clear. The cervix at time of this dictation is approximately 2-3 cm dilated, 80% effaced, - 1 station, vertex presentation. Artificial amniorrhexis of a fore bag reveals abundant clear fluid. heart tones are consistent with reactive NST. Impression: 40-4/7 weeks intrauterine with complaint of spontaneous amniorrhexis, now beginning active labor. Plan: Continue oxytocin augmentation per hospital protocol. Close maternal and surveillance. Anticipate normal spontaneous vaginal delivery. Review of Systems negative except as in HPI. Past Medical History Past Medical History: Asthma Additional Past Medical History / Comment(s): pyelonephritis History of Any Multi-Drug Resistant Organisms: None Reported Past Surgical History: No Surgical Hx Reported Past Anesthesia/Blood Transfusion Reactions: No Reported Reaction Past Psychological History: Anxiety Smoking Status: Never smoker Past Alcohol Use History: None Reported Past Drug Use History: None Reported - Past Family History Father Family Medical History: No Reported History Medications and Allergies Home Medications Medication Instructions Recorded Confirmed Type Pnv,Calcium 72/Iron/Folic Acid 1 tab PO DAILY 03/20/17 09/15/17 History [ Plus Tablet] Albuterol Inhaler [Ventolin Hfa 1 - 2 puff INHALATION RT-QID PRN 05/24/17 History Inhaler] Budesonide [Pulmicort Flexhaler] 2 puff INHALATION BID 07/26/17 09/15/17 History Allergies Allergy/AdvReac Type Severity Reaction Status Date / Time amoxicillin Allergy Rash/Hives Verified 09/15/17 03:13 Penicillins Allergy Rash/Hives Verified 09/15/17 03:13 Exam - Vital Signs Vital signs: Vital Signs Temp Pulse Resp BP Pulse Ox 09/15/17 03:33 96.8 F L 86 16 126/78 98 09/15/17 03:26 96.8 F L 86 16 126/78 98 Intake and Output 09/14/17 09/15/17 09/15/17 23:59 06:59 14:59 Other: # Voids Weight see dictation under HPI, please. Results Result Diagrams: 09/15/17 03:55 Abnormal Lab Results - Last 24 Hours (Table) 09/15/17 Range/Units 03:55 WBC 20.1 H (3.8-10.6) k/uL Neutrophils # 16.5 H (1.3-7.7) k/uL Assessment and Plan Plan: continue close maternal and surveillance. Analgesic options are reviewed with the patient. Anticipate normal spontaneous vaginal delivery, with oxytocin augmentation per protocol. Time with Patient: Less than 30
[2017-09-15] MEDS ORDERED: fentaNYL (PF) 50 MCG/ML 5 ML AMP ONE (12:15)
[2017-09-15] MEDS ORDERED: BUPIVACAINE (PF) 0.25% 30 ML VIAL ONE (12:15)
[2017-09-15] MEDS ORDERED: SODIUM CHLORIDE 0.9% 100 ML BAG ONE (12:15)
[2017-09-15] MEDS ORDERED: BUPIVACAINE (PF) 0.25% 25 ML, fentaNYL (PF) 200 MCG in SODIUM CHLORIDE 0.9% 71 ML EPIDURAL ONE (12:54)
[2017-09-15] MEDS: CLINDAMYCIN 900 MG in DEXTROSE 5% IN WATER 50 ML IVPB SCH ×2 (13:55)
[2017-09-15] MEDS ORDERED: CITRIC ACID-SODIUM CITRATE 15 ML CUP PO ONE (14:24)
[2017-09-15] MEDS ORDERED: MORPHINE SULFATE (PF) 0.3 MG/0.3 ML SYR ONE (14:42)
[2017-09-15] MEDS ORDERED: ONDANSETRON 4 MG/2 ML VIAL ONE (14:42)
[2017-09-15] MEDS ORDERED: fentaNYL (PF) 50 MCG/ML 2 ML AMP ONE (14:42)
[2017-09-15] MEDS ORDERED: OXYTOCIN 10 UNIT/ML 1 ML VIAL ONE (14:42)
[2017-09-15] MEDS ORDERED: NALBUPHINE 10 MG/ML AMPUL ONE (14:42)
[2017-09-15] MEDS ORDERED: NALOXONE 0.4 MG/ML 1 ML VIAL IV PRN ×2 (15:22→15:28)
[2017-09-15] MEDS ORDERED: MORPHINE SULFATE 10 MG/ML SYRINGE IVP PRN (15:22)
[2017-09-15] MEDS ORDERED: NALBUPHINE 10 MG/ML AMPUL IV PRN (15:22)
[2017-09-15] MEDS ORDERED: diphenhydrAMINE 50 MG/ML 1 ML VIAL IVP PRN ×3 (15:22→15:28)
--- NOTE | 2017-09-15 15:27 | P.OP ---
Date of Procedure: 09/15/17 Preoperative Diagnosis: 40-4/7 weeks' gestation, arrest of dilatation and descent. Postoperative Diagnosis: Name, left occiput transverse, fibroid uterus Procedure(s) Performed: Primary low transverse section Anesthesia: epidural Surgeon: Essence Colon Multilith Operator #1: Kayla Cardoso Estimated Blood Loss (ml): 600 IV fluids (ml): 700 Urine output (ml): 500 Pathology: other (Placenta) Condition: stable Disposition: PACU Operative Findings: Liveborn female infant, left occiput transverse, fibroid uterus. Description of Procedure: Patient presented with spontaneous amniorrhexis at home at 40-4/7 weeks' gestation. Oxytocin was given and titrated per hospital protocol, epidural was placed per her request. Clindamycin was given prophylactically after 12 hours of ruptured membranes. No dilatation was noted after 3 hours, patient arrest of dilation at 4 cm, 90%, -1 station. Decision was made to proceed with primary low transverse section. Patient is brought to the operating room, vaginal prep was performed. Epidural was topped off per anesthesia. Abdomen is prepped and draped in usual sterile fashion, Ham catheter to direct drainage. The appropriate timeout is performed to assure proper patient and procedural identification. The analgesia is checked and noted to be adequate. A low transverse skin incision is made in this is carried down through the subcutaneous tissue to the fascia. Fascia is isolated, scored and extended bilaterally with curved Mercado scissors. Peritoneum is next identified and incised, there is no bowel or bladder involvement. Bladder blade is placed over the dome of the bladder and at all times the bladder is Well from the operative field to avoid injury. A low transverse uterine incision is made in this is carried down through the depth of the tissue. Upon entering the uterine cavity clear fluid is noted. The uterine incision is extended with blunt dissection. The infant's head is delivered in the left occiput transverse position. The oropharynx, nasopharynx and external nares were all bulb suctioned on the abdomen. Patient is officially delivered of a liveborn female infant with scores of 8 and 9 at one and 5 minutes respectively. The placentas delivered manually, it is inspected and noted to be intact with trivascular cord. At this time the uterus is externalized. It is wiped clean internally with a sterile sponge to avoid any retained products of conception. The edges are grasped with Luis clamps. Uterus is closed in a two-step fashion, first layer running, second layer imbricated, both with 0 Vicryl suture. Bilateral tubes and ovaries are inspected and noted to be normal. There are multiple small fibroids noted in the uterus, largest measuring approximately 1.5 cm. The abdomen is suctioned with suction on guard and the uterus is gently placed back into the abdominal cavity. Bilateral gutters are inspected and cleaned. Uterine incision is once again inspected, it is intact, clean and dry. The peritoneum is allowed to close by secondary intention. The fascia is closed in a running stitch of 0 Vicryl with over ligation in the midline. Subcutaneous tissue is irrigated, inspected, clean and dry. It is reapproximated with 3-0 Vicryl in a running fashion. 4.0 Monocryl suture is used in a subcuticular fashion for final skin closure. Steri-Strips and Mastisol are applied to the wound. Dressing is applied. Uterus is massaged, bleeding is appropriate. Ham is noted to be draining clear urine. Patient is brought back to the recovery room in very good condition with stable vital signs including a pulse of 98, blood pressure 112/48, 100% O2 saturation.
[2017-09-15] MEDS ORDERED: ONDANSETRON 4 MG/2 ML VIAL IVP PRN (15:28)
[2017-09-15] MEDS ORDERED: ACETAMINOPHEN TAB 325 MG TAB PO PRN (15:28)
[2017-09-15] MEDS ORDERED: diphenhydrAMINE 25 MG CAP PO PRN (15:28)
[2017-09-15] MEDS ORDERED: ZOLPIDEM 5 MG TAB PO PRN (15:28)
[2017-09-15] MEDS ORDERED: Acetaminophen-Codeine 300-30mg TAB PO PRN (15:28)
[2017-09-15] MEDS ORDERED: METOCLOPRAMIDE 5 MG/ML 2 ML VIAL IVP PRN (15:28)
[2017-09-15] MEDS ORDERED: diphenhydrAMINE 50 MG CAP PO PRN (15:28)
[2017-09-15] MEDS: KETOROLAC 30 MG/ML 1 ML VIAL IVP PRN (19:33)
[2017-09-15] MEDS: SENNOSIDES-DOCUSATE SODIUM 1 EACH TAB PO SCH (21:01)
--- NOTE | 2017-09-16 05:20 | P.PN ---
Subjective slept well, minimal lochia rubra, pain well tolerated. Positive flatus. Objective - Vital Signs Vital signs: Vital Signs Temp 98.2 F 09/16/17 04:00 Pulse 90 09/16/17 04:00 Resp 16 09/16/17 04:00 BP 112/66 09/16/17 04:00 Pulse Ox 98 09/16/17 04:00 Intake & Output 09/15/17 09/15/17 09/16/17 06:59 18:59 06:59 Intake Total 2000 Output Total 1550 1000 Balance 450 -1000 Weight Intake: Intake, IV Titration 2000 Amount Lactated Ringers 1,000 ml 2000 @ 125 mls/hr IV .Q8H WICHO Rx#:[id number] Output: Urine 950 1000 Estimated Blood Loss 600 Other: Voiding Method Indwelling Catheter # Voids 4 - Constitutional General appearance: Present: average body habitus, cooperative, no acute distress, obese - EENT Eyes: Present: PERRLA ENT: Present: normal oropharynx - Neck Neck: Present: normal ROM Thyroid: bilateral: normal size - Respiratory Respiratory: bilateral: CTA - Cardiovascular Rhythm: regular - Gastrointestinal General gastrointestinal: Present: normal bowel sounds - Integumentary Integumentary Comment(s): low transverse incision well approximated, clean and dry, Steri-Strips applied. - Neurologic Neurologic: Present: CNII-XII intact - Musculoskeletal Musculoskeletal: Present: gait normal - Psychiatric Psychiatric: Present: A&O x's 3, appropriate affect, intact judgment & insight - Labs CBC & Chem 7: 09/15/17 03:55 Assessment and Plan Plan: continue postoperative care today. Possible discharge home tomorrow. Time with Patient: Less than 30
[2017-09-16] MEDS: KETOROLAC 30 MG/ML 1 ML VIAL IVP PRN (05:32)
[2017-09-16] MEDS: LACTATED RINGERS 1,000 ML IV SCH ×5 (06:32→22:17)
[2017-09-16 06:34] LABS: Basophils % (A) 0 %; CH 29.3; CHCM 33.3; Eosinophils # (A) 0.1 k/uL (0-0.7); Eosinophils % (A) 1 %; HCT 36.2 % (34.0-46.0); HDW 2.51; HGB 11.8 gm/dL (11.4-16.0); Luc # (Auto) 0.27; Luc % (Auto) 2; Lymphocytes # (A) 1.6 k/uL (1.0-4.8); Lymphocytes % (A) 9 %; MCH 28.7 pg (25.0-35.0); MCHC 32.4 g/dL (31.0-37.0); MCV 88.4 fL (80.0-100.0); Mean Platelet Volume 6.8; Monocytes % (A) 6 %; Neutrophils # (A) 14.3 k/uL (1.3-7.7); Neutrophils % (A) 83 %; RDW 13.4 % (11.5-15.5); WBC 17.3 k/uL (3.8-10.6); WBC (Perox) 17.29
[2017-09-16] MEDS: CLINDAMYCIN 900 MG in DEXTROSE 5% IN WATER 50 ML IVPB SCH ×6 (06:34→22:17)
[2017-09-16] MEDS: OXYTOCIN 20 UNITS/1000 ML NS 1,000 ML IV SCH (06:34)
[2017-09-16] MEDS: SENNOSIDES-DOCUSATE SODIUM 1 EACH TAB PO SCH ×2 (09:06→20:17)
[2017-09-16] MEDS: IBUPROFEN 600 MG TAB PO PRN ×2 (09:06→21:48)
[2017-09-16] MEDS ORDERED: HYDROcodone/APAP 5-325MG 1 EACH TAB PO PRN (11:51)
[2017-09-16] MEDS: HYDROcodone/APAP 5-325MG 1 EACH TAB PO PRN ×2 (12:05→18:02)
--- NOTE | 2017-09-16 13:05 | P.PN ---
Progress Note - Text 0705 Anesthesia POD 1. Patient is status post section under epidural anesthesia with epidural preservative free morphine 3 mg. Moderate pruritus now resolving, poor post-op analgesia, and no headache or other complication A villareal is currently on by mouth analgesics doing well.
[2017-09-17] MEDS: HYDROcodone/APAP 5-325MG 1 EACH TAB PO PRN ×5 (02:31→20:14)
[2017-09-17] MEDS: CLINDAMYCIN 900 MG in DEXTROSE 5% IN WATER 50 ML IVPB SCH ×2 (03:00)
--- NOTE | 2017-09-17 08:23 | P.PNOBGPC ---
Subjective - Subjective Principal diagnosis: POD # 2 LTCS Interval history: Deborah has done well surgically but still continues to complain of pain. She has gotten very little rest after secondary to incident needs. Her milk has not come in and she has been supplementing with formula. She notes minimal ambulation, but is tolerating regular diet without nausea or vomiting, voiding without difficulty. She states positive flatus. She is concerned about pain control, and ability to secure her at home. Both her and her partner this morning look very fatigued and are unable to keep denies up in one speaking Patient reports: Reports appetite normal, Reports voiding normally, Reports pain poorly controlled : doing well Objective - Vital Signs Latest vital signs: Vital Signs Temp Pulse Resp BP Pulse Ox 09/16/17 23:59 98.3 F 95 16 128/72 09/16/17 17:00 81 16 118/64 09/16/17 12:00 98.1 F 64 16 120/65 98 09/16/17 10:00 16 99 09/16/17 08:38 97.3 F L 87 16 103/65 97 09/16/17 08:35 97 Intake and Output 09/16/17 09/17/17 09/17/17 22:59 06:59 14:59 Other: # Voids 1 2 - Exam Lungs: bilateral: normal Extremities: Present: normal Abdomen: Present: normal appearance Incision: Present: normal, dry, intact Uterus: Present: firm (At the umbilicus) Assessment and Plan (1) Delivered by section Narrative/Plan: We'll continue current postoperative care. I believe patient needs a stretch of solid sleep before she will start to feel better we'll encourage ambulation and discussed discharge versus staying one more day in the hospital. Current Visit: Yes Status: Acute Code(s): O82 - ENCOUNTER FOR DELIVERY WITHOUT INDICATION SNOMED Code(s): 611375172 (2) Term Current Visit: Yes Status: Acute Code(s): Z34.80 - ENCOUNTER FOR SUPRVSN OF NORMAL , UNSP TRIMESTER SNOMED Code(s): 37400035 (3) Arrested labor Current Visit: Yes Status: Acute Code(s): O62.1 - SECONDARY UTERINE INERTIA SNOMED Code(s): 93264409
[2017-09-17] MEDS: SENNOSIDES-DOCUSATE SODIUM 1 EACH TAB PO SCH ×2 (09:13→20:15)
[2017-09-17] MEDS: IBUPROFEN 600 MG TAB PO PRN ×3 (10:02→23:32)
[2017-09-17] MEDS ORDERED: SERTRALINE 25 MG TAB PO SCH (15:15)
[2017-09-17] MEDS: buPROPion XL 150 MG TAB.ER.24H PO SCH (17:26)
[2017-09-18] MEDS: HYDROcodone/APAP 5-325MG 1 EACH TAB PO PRN (05:27)
[2017-09-18] MEDS: SENNOSIDES-DOCUSATE SODIUM 1 EACH TAB PO SCH (08:25)
[2017-09-18] MEDS: IBUPROFEN 600 MG TAB PO PRN ×2 (08:25→14:40)
[2017-09-18] MEDS: buPROPion XL 150 MG TAB.ER.24H PO SCH (08:25)
--- NOTE | 2017-09-18 08:33 | P.PNOBGPC ---
Subjective - Subjective Principal diagnosis: Postop day 3, primary Interval history: Prachi is doing better this morning. We did start Wellbutrin 150 XL yesterday secondary to presumed depression. She has an increase in stressors in her life and requested medication. She is ambulating and voiding without difficulty. She is tolerating a regular diet without nausea or vomiting. Her pain is controlled with oral medication. Her lochia is minimal. She is attempting breast-feeding but her milk supply is low and therefore she is supplementing with formula. The baby is doing well and is okay for discharge in addition. Patient reports: Reports appetite normal, Reports voiding normally, Reports pain well controlled, Reports ambulating normally : doing well Objective - Vital Signs Latest vital signs: Vital Signs Temp Pulse Resp BP Pulse Ox 09/18/17 00:00 97.8 F 80 18 130/71 100 09/17/17 16:00 97.6 F 91 18 125/77 97 - Exam Extremities: Present: normal Abdomen: Present: normal appearance, soft Incision: Present: normal, dry, intact Uterus: Present: firm Assessment and Plan (1) Delivered by section Narrative/Plan: We'll plan discharge home this morning. And for Motrin and Zap will be given to patient for pain control. She is to follow up with me in 1 week for incision/recheck on her depression. Current Visit: Yes Status: Acute Code(s): O82 - ENCOUNTER FOR DELIVERY WITHOUT INDICATION SNOMED Code(s): 909501499 (2) Term Current Visit: Yes Status: Acute Code(s): Z34.80 - ENCOUNTER FOR SUPRVSN OF NORMAL , UNSP TRIMESTER SNOMED Code(s): 83194193 (3) Arrested labor Current Visit: Yes Status: Acute Code(s): O62.1 - SECONDARY UTERINE INERTIA SNOMED Code(s): 37166985
--- NOTE | 2017-09-18 08:35 | P.DS ---
Providers Date of admission: 09/15/17 03:26 Expected date of discharge: 09/18/17 Attending physician: Kayla Cardoso Primary care physician: Kayla Cardoso - Discharge Diagnosis(es) (1) Delivered by section Prachi presented to labor and alert delivery with complaints of contractions. She had arrest of first stage of labor and was taken for primary secondary to the arrest. Postoperatively she has done well surgically but her mood and pain has been an issue. She now states her pain is well-controlled on [place] 5/325. She is ambulatory and voiding without difficulty. Her mood is a concern and we are treating her with Wellbutrin 150 mg XL. Today she states she wishes to be discharged home on postop day 3 Current Visit: Yes Status: Acute (2) Term Current Visit: Yes Status: Acute (3) Arrested labor Current Visit: Yes Status: Acute Plan - Discharge Summary New Discharge Prescriptions: No Action Pnv,Calcium 72/Iron/Folic Acid [ Plus Tablet] 1 tab PO DAILY Albuterol Inhaler [Ventolin Hfa Inhaler] 1 - 2 puff INHALATION RT-QID PRN PRN Reason: Wheezing Budesonide [Pulmicort Flexhaler] 2 puff INHALATION BID Discharge Medication List Pnv,Calcium 72/Iron/Folic Acid [ Plus Tablet] 1 tab PO DAILY 03/20/17 [ History] Albuterol Inhaler [Ventolin Hfa Inhaler] 1 - 2 puff INHALATION RT-QID PRN [History] Budesonide [Pulmicort Flexhaler] 2 puff INHALATION BID 07/26/17 [History] Follow up Appointment(s)/Referral(s): Kayla Cardoso DO [Primary Care Provider] - 1 Week Patient Instructions/Handouts: (DC) Discharge Disposition: HOME SELF-CARE
[2017-09-18 09:06] VITALS: BP 99/60; PULSE 102; RESP 16; TEMP 98.5
--- NOTE | 2017-09-18 13:12 | P.MSEPDOC ---
Presenting Problems - Arrival Data Date of Arrival on Unit: 09/15/17 Time of Arrival on Unit: 03:26 Mode of Transport: Bed - Complaint OB-Reason for Admission/Chief Complaint: Possible Onset of Labor, Rule Out SROM Medical History - Information : 1 Para: 0 Term: 0 : 0 Abortions: Spontaneous or Elective: 0 Number of Living Children: 0 - Gestational Age Gestational Age by SHARA (wks/days): 40 Weeks and 4 Days Review of Systems - Review of Systems Constitutional: No problems Breast: No problems ENT: No problems Cardiovascular: No problems Respiratory: No problems Gastrointestinal: No problems Genitourinary: No problems Musculoskeletal: No problems Neurological: No problems Skin: No problems Vital Signs - Temperature Temperature: 98.5 F Temperature Source: Oral - Pulse Right Brachial Pulse Rate: 102 Pulse Assessment Method: Automatic Cuff - Respirations Respiratory Rate: 16 Oxygen Delivery Method: Room Air O2 Sat by Pulse Oximetry: 98 - Blood Pressure Right Arm Blood Pressure: 99/60 Blood Pressure Mean: 73 Blood Pressure Source: Automatic Cuff Medical Screen Scoring (Pre) - Cervical Exam Dilation: 1-3 cm = 1 Membranes: Ruptured = 3 - Uterine Contractions Frequency: N/A Duration: N/A Intensity: N/A - Maternal Vital Signs Maternal Temperature: N/A Maternal Blood Pressure: N/A Signs of Preeclampsia: N/A Maternal Respirations: N/A - Pain Assessment Pain Location and Character: Abdomen Pain Scale Used: Numeric (1 - 10) Pain Intensity: 0 Pain Frequency: Intermittent Pain Duration Units: Minutes Pain Behavior: None Exhibited Pain Aggravating Factors: Contractions Non-Pharmacological Interventions: Distraction, Inactivity - Assessment Baseline FHR: 125 Heart Rate - NICHD Category: Category I (Normal) = 0 NST: Reactive Position: N/A Station: N/A - Total Score Total Score (Pre): 4 - Level of Risk Level of Risk: Low (0-5) Physician Notification (Pre) - Physician Notified Physician/Practitioner Notifed:: Dr. Colon Spoke With: Dr. Colno - Notification Comment Comment: updated on pt's status I agree with the RN Medical Screening Exam: Yes Risk & Benefit of care provided described in d/c instruction: Yes Diagnosis: FULL-TERM NANCY ROM, ONSET LABOR WITHIN 24 HOURS OF RUPTURE
== END 2017-09-18 16:00 | disposition home or self-care (01) | DRG 540 ==
LOC: FBPOP 02:50 → 4FBP 03:26
PROVIDERS: ADMIT Obstetrics & Gynecology; ATTEND Obstetrics & Gynecology Obstetrics
PROC: 10D00Z1 Extraction of Products of Conception, Low, Open Approach (ICD-10-PCS; principal; 2017-09-15 14:52)
DX: O34.13 Maternal care for benign tumor of corpus uteri, third trimester (principal); F53 Mental and behavioral disorders associated with the puerperium, not elsewhere classified; O99.344 Other mental disorders complicating childbirth; O26.893 Other specified pregnancy related conditions, third trimester; F41.9 Anxiety disorder, unspecified; J45.909 Unspecified asthma, uncomplicated; O99.52 Diseases of the respiratory system complicating childbirth; O62.1 Secondary uterine inertia; Z37.0 Single live birth; Z3A.40 40 weeks gestation of pregnancy; Z88.0 Allergy status to penicillin; Z87.891 Personal history of nicotine dependence; Z87.442 Personal history of urinary calculi; Z83.3 Family history of diabetes mellitus; Z81.8 Family history of other mental and behavioral disorders; Z80.3 Family history of malignant neoplasm of breast
CPT/HCPCS: 59025; 84112; 85025; 86850; 86900; 86901; 88307; 99213

== ENCOUNTER 2018-05-31 11:48 | Emergency (ER) | payer OTHER ==
[2018-05-31 12:12] VITALS: BP 133/78; PULSE 98; RESP 18; TEMP 98.4
--- NOTE | 2018-05-31 12:38 | ED ---
Skin/Abscess/FB HPI - General Chief complaint: Skin/Abscess/Foreign Body Stated complaint: Tick Bites Time Seen by Provider: 05/31/18 12:17 Source: patient, RN notes reviewed Mode of arrival: ambulatory Limitations: no limitations - History of Present Illness Initial comments: This is a 32-year-old female who presents to the emergency department with chief complaint of insect bites. Patient states that 3-4 days ago she was working outside in the garden at her mother's house. She states that she then developed two bug bites on her left arm. She states that they have been itchy and she has been applying hydrocortisone cream. Patient states that the bug bites have not improved and that they became even more itchy today. Patient denies any allergies to specific insects. She states she is concerned that she has been bitten by ticks as she noticed a "red halo" around one of the bug bites earlier today. Patient states that she did not, however, see a tick. This has since disappeared. Denies fever, chills, chest pain, shortness of breath, abdominal pain, nausea or vomiting, constipation or diarrhea, dysuria or hematuria, numbness or tingling, headache or vision changes. - Related Data Home Medications Medication Instructions Recorded Confirmed Albuterol Inhaler [Ventolin Hfa 1 - 2 puff INHALATION RT-QID PRN 05/24/17 Inhaler] Budesonide [Pulmicort Flexhaler] 2 puff INHALATION BID 07/26/17 09/15/17 buPROPion HCL [Wellbutrin XL] 150 mg PO DAILY 05/31/18 05/31/18 Previous Rx's Medication Instructions Recorded Hydrocortisone Cream 1 applic TOPICAL TID #1 tube 05/31/18 [Hydrocortisone 2.5% Cream] Allergies Allergy/AdvReac Type Severity Reaction Status Date / Time amoxicillin Allergy Rash/Hives Verified 05/31/18 12:12 Penicillins Allergy Rash/Hives Verified 05/31/18 12:12 Review of Systems ROS Statement: Those systems with pertinent positive or pertinent negative responses have been documented in the HPI. ROS Other: All systems not noted in ROS Statement are negative. Past Medical History Past Medical History: Asthma Additional Past Medical History / Comment(s): pyelonephritis History of Any Multi-Drug Resistant Organisms: None Reported Past Surgical History: No Surgical Hx Reported Past Anesthesia/Blood Transfusion Reactions: No Reported Reaction Past Psychological History: Anxiety Smoking Status: Never smoker Past Alcohol Use History: None Reported Past Drug Use History: None Reported - Past Family History Father Family Medical History: No Reported History General Exam - General Exam Comments Initial Comments: General: Awake and alert, well-developed; in no apparent distress. HEENT: Head atraumatic, normocephalic. Pupils are equal, round and reactive to light. Extraocular movements intact. Oropharynx moist without erythema or exudate. Neck: Supple. Normal ROM. Cardiovascular: Regular rate and rhythm. No murmurs, rubs or gallops. Chest symmetrical. Respiratory: Lungs clear to auscultation bilaterally. No wheezes, rales or rhonchi. Normal respiratory effort with no use of accessory muscles. Musculoskeletal: Normal ROM, no tenderness bilateral upper and lower extremities. Ambulating normally. Skin: Two firm, erythematous, swollen papules consistent with insect bites left radial wrist and proximal ventral forearm. Neurological: Alert and oriented x3. CN II-XII grossly intact. Speech is fluent and answers are appropriate. No focal neuro deficits. Psychiatric: Normal mood and affect. No overt signs of depression or anxiety noted. Limitations: no limitations Course Vital Signs 05/31/18 12:09 Temperature 98.4 F Pulse Rate 98 Respiratory 18 Rate Blood Pressure 133/78 O2 Sat by Pulse 98 Oximetry Medical Decision Making - Medical Decision Making This is a 32-year-old female who presents to the emergency department with chief complaint of insect bites. Patient states that she developed two insect bites on her left forearm 3-4 days ago. She states that the lesions are pruritic and she has been applying hydrocortisone cream. Patient states that she became concerned that she may have been bit by a tick when the itchiness worsened today and she noticed redness around one of the insect bites. She denies ever seeing a tick. On physical examination, there are two firm, erythematous swollen papules on the left forearm consistent with insect bites. No evidence of erythema migrans. Vitals are stable and patient is in no acute distress. She will be given a prescription for a stronger topical corticosteroid. Recommended also taking Benadryl as needed. I discussed with patient the characteristic rash of Lyme's disease and return parameters were given. Patient is in agreement with plan and voices understanding. She will be discharged home at this time. All questions were answered. Disposition Clinical Impression: Insect bite Disposition: HOME SELF-CARE Condition: Good Instructions: Insect Bite or Sting (ED) Additional Instructions: Please use medications as prescribed. Please follow up with primary care provider within 1-2 days. Return to emergency department if symptoms should worsen or any concerns arise. Prescriptions: Hydrocortisone Cream [Hydrocortisone 2.5% Cream] 1 applic TOPICAL TID #1 tube Is patient prescribed a controlled substance at d/c from ED?: No Referrals: Rahat Lara Jr, [Primary Care Provider] - 1-2 days Time of Disposition: 12:38
== END 2018-05-31 12:50 | disposition home or self-care (01) ==
LOC: EC 11:48
DX: S40.862A Insect bite (nonvenomous) of left upper arm, initial encounter (principal); J45.909 Unspecified asthma, uncomplicated; Z79.51 Long term (current) use of inhaled steroids; Z79.899 Other long term (current) drug therapy; Z88.0 Allergy status to penicillin; W57.XXXA Bitten or stung by nonvenomous insect and other nonvenomous arthropods, initial encounter; Y92.89 Other specified places as the place of occurrence of the external cause
CPT/HCPCS: 99281

== ENCOUNTER 2018-09-04 21:07 | Emergency (ER) | payer OTHER ==
[2018-09-04 21:23] VITALS: TEMP 98.1
[2018-09-04] MEDS ORDERED: predniSONE 50 MG TAB PO STA (22:45)
--- NOTE | 2018-09-04 22:53 | ED ---
Skin/Abscess/FB HPI - General Chief complaint: Skin/Abscess/Foreign Body Stated complaint: rash/blisters on arm & torso Time Seen by Provider: 09/04/18 22:08 Source: patient, RN notes reviewed Mode of arrival: ambulatory Limitations: no limitations - History of Present Illness Initial comments: This is a 33-year-old female who presents to the emergency department with chief complaint of rash. Patient states that 4 days ago she developed a rash on her hips. She states that the rash started as small lesions and has progressed. She states that today she noticed the same rash starting on her left forearm. Patient reports that the rash is itchy and burning. She denies any new soaps, laundry detergents, fragrances or lotions. She is unsure which may have been in contact with. Denies any recent illnesses or infections. Denies fevers or chills, cough, abdominal pain, nausea or vomiting. She states she is up-to-date with her vaccinations. She has been taking Benadryl and applying hydrocortisone cream with minimal relief. She states the only thing that has helped with the discomfort has been witch ang. - Related Data Home Medications Medication Instructions Recorded Confirmed Albuterol Inhaler [Ventolin Hfa 1 - 2 puff INHALATION RT-QID PRN 05/24/17 Inhaler] Budesonide [Pulmicort Flexhaler] 2 puff INHALATION BID 07/26/17 09/15/17 buPROPion HCL [Wellbutrin XL] 150 mg PO DAILY 05/31/18 05/31/18 Previous Rx's Medication Instructions Recorded Hydrocortisone Cream 1 applic TOPICAL TID #1 tube 05/31/18 [Hydrocortisone 2.5% Cream] predniSONE 20 mg PO DAILY #4 tab 09/04/18 Allergies Allergy/AdvReac Type Severity Reaction Status Date / Time amoxicillin Allergy Rash/Hives Verified 09/04/18 21:23 Penicillins Allergy Rash/Hives Verified 09/04/18 21:23 Review of Systems ROS Statement: Those systems with pertinent positive or pertinent negative responses have been documented in the HPI. ROS Other: All systems not noted in ROS Statement are negative. Past Medical History Past Medical History: Asthma Additional Past Medical History / Comment(s): pyelonephritis History of Any Multi-Drug Resistant Organisms: None Reported Past Surgical History: No Surgical Hx Reported Past Anesthesia/Blood Transfusion Reactions: No Reported Reaction Past Psychological History: Anxiety Smoking Status: Never smoker Past Alcohol Use History: None Reported Past Drug Use History: None Reported - Past Family History Father Family Medical History: No Reported History General Exam - General Exam Comments Initial Comments: General: Awake and alert, well-developed; in no apparent distress. HEENT: Head atraumatic, normocephalic. Pupils are equal, round and reactive to light. Extraocular movements intact. Oropharynx moist without erythema or exudate. Neck: Supple. Normal ROM. Cardiovascular: Regular rate and rhythm. No murmurs, rubs or gallops. Chest symmetrical. Respiratory: Lungs clear to auscultation bilaterally. No wheezes, rales or rhonchi. Normal respiratory effort with no use of accessory muscles. Musculoskeletal: Normal ROM, no tenderness bilateral upper and lower extremities. Ambulating normally. Skin: Large area of raised, coalesced erythematous maculopapular rash to bilateral hips; extends with discrete lesions under right breast. Vesicular rash on erythematous base left forarm. Neurological: Alert and oriented x3. CN II-XII grossly intact. Speech is fluent and answers are appropriate. No focal neuro deficits. Psychiatric: Normal mood and affect. No overt signs of depression or anxiety noted. Limitations: no limitations Course Vital Signs 09/04/18 21:21 Temperature 98.1 F Pulse Rate 95 Respiratory 20 Rate Blood Pressure 140/98 O2 Sat by Pulse 99 Oximetry Medical Decision Making - Medical Decision Making This is a 33-year-old female who presents to the emergency department with chief complaint of rash. Patient reports a rash on her hips and now starting on her arms. It first appeared 4 days ago. She describes the rash as itchy and burning. There are large areas of erythematous coalesced lesions to bilateral hips. This is along the patient's pant line. There are also lesions noted under the right breast along the bra line. The lesions on patient's left forearm are in contact with the rash on her left hip when patient's arms are flat at her side. This is likely a contact dermatitis. Patient has been applying hydrocortisone cream and taking Benadryl with minimal relief. Recommended a stronger topical corticosteroid, however patient would like oral steroids. She will be started on a short course of prednisone. Recommended cool compresses. Vital signs are stable and patient is in no acute distress. She will be discharged home at this time. She is in agreement with plan and voices understanding. All questions have been answered. Disposition Clinical Impression: Contact dermatitis Disposition: HOME SELF-CARE Condition: Good Instructions: Contact Dermatitis (ED) Additional Instructions: Please take medications as prescribed. Please follow up with primary care provider within 1-2 days. Return to emergency department if symptoms should worsen or any concerns arise. Prescriptions: predniSONE 20 mg PO DAILY #4 tab Is patient prescribed a controlled substance at d/c from ED?: No Referrals: Rahat Lara Jr, [Primary Care Provider] - 1-2 days Time of Disposition: 22:52
[2018-09-04 23:04] VITALS: BP 138/80; PULSE 74; RESP 18
== END 2018-09-04 23:03 | disposition home or self-care (01) ==
LOC: EC 21:07
DX: L25.9 Unspecified contact dermatitis, unspecified cause (principal); J45.909 Unspecified asthma, uncomplicated; F41.9 Anxiety disorder, unspecified; Z79.51 Long term (current) use of inhaled steroids; Z79.899 Other long term (current) drug therapy; Z88.0 Allergy status to penicillin
CPT/HCPCS: 99282; J7512

== ENCOUNTER 2019-07-21 17:09 | Emergency (ER) | payer OTHER ==
[2019-07-21 17:15] VITALS: BP 138/80; PULSE 118; RESP 20; TEMP 98.2
--- NOTE | 2019-07-21 18:37 | ED ---
Skin/Abscess/FB HPI - General Chief complaint: Skin/Abscess/Foreign Body Stated complaint: Cyst Time Seen by Provider: 07/21/19 17:17 Source: patient, RN notes reviewed, old records reviewed Mode of arrival: ambulatory Limitations: no limitations - History of Present Illness Initial comments: Patient is a 33-year-old female presents emergency department today with chief complaint of a labial cyst for 3 days. Patient reports that she went to [facility] when she noticed this and called the fluid-filled cyst but did not do any further evaluation. Patient reports she is going on vacation was worried that this would be worse that she felt she had to come in to be seen. She does not have an SENSOR SPECIALIST. - Related Data Home Medications Medication Instructions Recorded Confirmed Albuterol Inhaler [Ventolin Hfa 1 - 2 puff INHALATION RT-QID PRN 05/24/17 07/21/19 Inhaler] Albuterol Nebulized [Ventolin 2.5 mg INHALATION RT-QID PRN 07/21/19 07/21/19 Nebulized] Lisinopril [Zestril] 10 mg PO DAILY 07/21/19 07/21/19 predniSONE 40 mg PO DAILY 07/21/19 07/21/19 Allergies Allergy/AdvReac Type Severity Reaction Status Date / Time amoxicillin Allergy Rash/Hives Verified 07/21/19 17:30 Penicillins Allergy Rash/Hives Verified 07/21/19 17:30 Review of Systems ROS Statement: Those systems with pertinent positive or pertinent negative responses have been documented in the HPI. ROS Other: All systems not noted in ROS Statement are negative. Past Medical History Past Medical History: Asthma Additional Past Medical History / Comment(s): pyelonephritis History of Any Multi-Drug Resistant Organisms: None Reported Past Surgical History: No Surgical Hx Reported Past Anesthesia/Blood Transfusion Reactions: No Reported Reaction Past Psychological History: Anxiety Smoking Status: Never smoker Past Alcohol Use History: None Reported Past Drug Use History: None Reported - Past Family History Father Family Medical History: No Reported History General Exam Limitations: no limitations General appearance: alert, in no apparent distress Head exam: Present: atraumatic, normocephalic, normal inspection Eye exam: Present: normal appearance, PERRL, EOMI. Absent: scleral icterus, conjunctival injection, periorbital swelling ENT exam: Present: normal exam, mucous membranes moist Neck exam: Present: normal inspection. Absent: tenderness, meningismus, lymphadenopathy Respiratory exam: Present: normal lung sounds bilaterally. Absent: respiratory distress, wheezes, rales, rhonchi, stridor Cardiovascular Exam: Present: regular rate, normal rhythm, normal heart sounds. Absent: systolic murmur, diastolic murmur, rubs, gallop, clicks GI/Abdominal exam: Present: soft, normal bowel sounds. Absent: distended, tenderness, guarding, rebound, rigid External exam: Absent: normal external exam (Patient has a cystlike mass over the opening or vagina measuring 2 cm. It's reducible. Drainage was completed and there is a viscous fluid from the cystlike area. Concern for possible collins's gland cyst.) Extremities exam: Present: normal inspection, full ROM, normal capillary refill. Absent: tenderness, pedal edema, joint swelling, calf tenderness Back exam: Present: normal inspection, full ROM Neurological exam: Present: alert, oriented X3, CN II-XII intact Psychiatric exam: Present: normal affect, normal mood Skin exam: Present: warm, dry, intact, normal color. Absent: rash Course Vital Signs 07/21/19 17:14 Temperature 98.2 F Pulse Rate 118 H Respiratory 20 Rate Blood Pressure 138/80 O2 Sat by Pulse 99 Oximetry Medical Decision Making - Medical Decision Making 33-year-old female presents per his records today for concerns for vaginal opening cyst. On exam she has like to centimeter clear fluid cyst. On reevaluation patient's IUD use appears to be intact on pelvic exam no adnexal te nderness. She did have a UA today and expressed which was unremarkable. At this time patient's cyst is likely a Liberty's gland cyst. I did drain this and has a viscous fluid from the area. Patient has been advised to follow up with SENSOR SPECIALIST. Given referral for SENSOR SPECIALIST. Discussed return parameters. Disposition Clinical Impression: Vaginal cyst, Liberty's gland cyst Disposition: HOME SELF-CARE Condition: Good Instructions (If sedation given, give patient instructions): Abscess Incision and Drainage (DC) Additional Instructions: Patient advised to follow-up with SENSOR SPECIALIST as discussed. Patient should monitor for any signs of infection including redness swelling or drainage. Is patient prescribed a controlled substance at d/c from ED?: No Referrals: None,Stated [Primary Care Provider] - 1-2 days Kayla Cardoso DO [Doctor of Osteopathic Medicine] - 1-2 days Time of Disposition: 18:49
== END 2019-07-21 18:56 | disposition home or self-care (01) ==
LOC: EC 17:09
DX: N89.8 Other specified noninflammatory disorders of vagina (principal); N36.8 Other specified disorders of urethra; J45.909 Unspecified asthma, uncomplicated; Z79.899 Other long term (current) drug therapy; Z88.0 Allergy status to penicillin; Z79.51 Long term (current) use of inhaled steroids; Z79.52 Long term (current) use of systemic steroids; Z97.5 Presence of (intrauterine) contraceptive device; Z87.448 Personal history of other diseases of urinary system
CPT/HCPCS: 99283

== ENCOUNTER 2020-07-01 13:56 | Emergency (ER) | payer OTHER ==
[2020-07-01 14:02] VITALS: BP 155/102; TEMP 98.2
[2020-07-01 14:09] VITALS: RESP 20
[2020-07-01] MEDS ORDERED: ALBUTEROL NEBULIZED 2.5 MG/3 ML INHALATION STA ×2 (14:10→15:18)
[2020-07-01] MEDS ORDERED: methylPREDNISolone SOD SUCCI 125 MG/2 ML VIAL IV STA (14:11)
--- NOTE | 2020-07-01 14:20 | ED ---
General Adult HPI - General Chief complaint: Shortness of Breath Stated complaint: Wheezing, SOB Time Seen by Provider: 07/01/20 14:10 Source: patient Mode of arrival: ambulatory Limitations: no limitations - History of Present Illness Initial comments: 34-year-old female with history of asthma no history of presentations or ICU stays currently only using a rescue inhaler presents emergency department today for chief complaint of wheezing difficulty breathing. Patient states that she occasionally gets upper respiratory infections causing her to have an exacerbation she states she has had some congestion and slight cough. Denies fevers. She states that she believes this has triggered an asthma exacerbation she states the past 2 days she has had increased chest tightness when attempting to breathe which was identical to previous exacerbations in the past. She denies any chest pain, leg swelling, nausea, vomiting, jaw or arm pain. patient does not appear in distress on arrival. HR Is elevated. Pt has taken 1 albuterol treatment today, 1 hr prior to presentation to the ER. - Related Data Home Medications Medication Instructions Recorded Confirmed Albuterol Inhaler ([facility]) [Ventolin 1 - 2 puff INHALATION RT-QID PRN 05/24/17 07/21/19 Hfa Inhaler ([facility])] Albuterol Nebulized [Ventolin 2.5 mg INHALATION RT-QID PRN 07/21/19 07/21/19 Nebulized] lisinopriL [Zestril] 10 mg PO DAILY 07/21/19 07/21/19 predniSONE [Deltasone] 40 mg PO DAILY 07/21/19 07/21/19 Previous Rx's Medication Instructions Recorded predniSONE 50 mg PO DAILY 3 Days #3 tab 07/01/20 Allergies Allergy/AdvReac Type Severity Reaction Status Date / Time amoxicillin Allergy Rash/Hives Verified 07/01/20 14:03 Penicillins Allergy Rash/Hives Verified 07/01/20 14:03 Review of Systems ROS Statement: Those systems with pertinent positive or pertinent negative responses have been documented in the HPI. ROS Other: All systems not noted in ROS Statement are negative. Past Medical History Past Medical History: Asthma Additional Past Medical History / Comment(s): pyelonephritis History of Any Multi-Drug Resistant Organisms: None Reported Past Surgical History: No Surgical Hx Reported Past Anesthesia/Blood Transfusion Reactions: No Reported Reaction Past Psychological History: Anxiety Smoking Status: Never smoker Past Alcohol Use History: None Reported Past Drug Use History: None Reported - Past Family History Father Family Medical History: No Reported History General Exam - General Exam Comments Initial Comments: General: The patient is awake and alert, in no distress Eye: +3 mm pupils are equal, round and reactive to light, extra-ocular movements are intact. No nystagmus. There is normal conjunctiva bilaterally. No signs of icterus. Ears, nose, mouth and throat: There are moist mucous membranes and no oral lesions. Neck: The neck is supple, there is no tenderness or JVD. Cardiovascular: There is a regular rate and rhythm. No murmur, rub or gallop is appreciated. Respiratory: expiratory wheeze with diminished lung soundsRespirations are non- labored, breath sounds are equal. No stridor, rales, or rhonchi. Gastrointestinal: Soft, non-distended, non-tender abdomen without masses or organomegaly noted. There is no rebound or guarding present. Musculoskeletal: Normal ROM, no tenderness. Strength 5/5. Sensation intact. Radial pulses equal bilaterally 2+. Neurological: A&O x 3. CN II-XII intact grossly, There are no obvious motor or sensory deficits. Coordination appears grossly intact. Speech is normal. Skin: Skin is warm and dry and no rashes or lesions are noted. Psychiatric: Cooperative, appropriate mood & affect, normal judgment. Limitations: no limitations Course Vital Signs 07/01/20 07/01/20 07/01/20 14:00 14:05 14:27 Temperature 98.2 F Pulse Rate 118 H 110 H Respiratory 22 20 Rate Blood Pressure 155/102 O2 Sat by Pulse 96 Oximetry 07/01/20 07/01/20 14:48 15:22 Temperature Pulse Rate 110 H 112 H Respiratory Rate Blood Pressure O2 Sat by Pulse Oximetry - Reevaluation(s) Reevaluation #1: after initial treatment patient had improvement of air movement continued to have expiratory wheeze however somewhat improved Reevaluation #2: after second treatment wheeze almost completely resolved, pt requesting discharge. Medical Decision Making - Medical Decision Making 34-year-old female with history of asthma presenting for asthma exacerbation. Chest x-ray clear patient does not appear in distress patient has expiratory wheeze consistent with past medical history. Improvement after 2 albuterol treatments patient given Solu-Medrol be discharged with oral prednisone. Return parameters were discussed case discussed with type R Dr. Colin the patient was discharged appeared well Disposition Clinical Impression: Asthma exacerbation, Wheezing, Dyspnea, Elevated blood pressure reading Disposition: HOME SELF-CARE Condition: Good Instructions (If sedation given, give patient instructions): Asthma (ED) Additional Instructions: Please use medication as discussed. Please follow-up with family doctor in the next 2 days. Please return to emergency room if the symptoms increase or worsen or for any other concerns. Prescriptions: predniSONE 50 mg PO DAILY 3 Days #3 tab Is patient prescribed a controlled substance at d/c from ED?: No Referrals: None,Stated [Primary Care Provider] - 1-2 days Time of Disposition: 15:55
--- NOTE | 2020-07-01 15:15 | XR ---
EXAMINATION TYPE: XR chest 1V DATE OF EXAM: 07/01/2020 COMPARISON: NONE HISTORY: Shortness of breath TECHNIQUE: Single frontal view of the chest is obtained. FINDINGS: There is no focal air space opacity, pleural effusion, or pneumothorax seen. The cardiac silhouette size is within normal limits. The osseous structures are intact. Heart size is normal. N o overt failure. IMPRESSION: No acute process.
[2020-07-01 15:22] VITALS: PULSE 112
== END 2020-07-01 16:00 | disposition home or self-care (01) ==
LOC: EC 13:56
DX: J45.901 Unspecified asthma with (acute) exacerbation (principal); R03.0 Elevated blood-pressure reading, without diagnosis of hypertension; Z88.0 Allergy status to penicillin; Z79.51 Long term (current) use of inhaled steroids; Z79.899 Other long term (current) drug therapy; Z79.52 Long term (current) use of systemic steroids
CPT/HCPCS: 94640 ×2; 71045; 99285; 96374; J2930

== ENCOUNTER → 2020-09-16 | Outpatient (CLI) | payer OTHER ==
--- NOTE | 2020-09-16 16:05 | CT ---
EXAMINATION TYPE: CT soft tissue neck w con DATE OF EXAM: 09/16/2020 9:32 AM COMPARISON: None HISTORY: Localized swelling, mass and lump right side neck CT DLP: 531.6 mGycm Automated exposure control for dose reduction was used. CONTRAST: CT scan of the neck is performed following with IV Contrast, patient injected with 100 mL of Isovue 3 00. Axial images are obtained, coronal and sagittal reformatted images are reviewed. FINDINGS: Airway: No gross abnormality seen. Parotid/submandibular glands: No gross abnormality seen. Carotid/Vascular Structures: Patent. Osseous Structures: No acute osseous abnormality. Other: No cervical lymphadenopathy. Myofascial planes are preserved. Soft tissues of the neck are holly ssly symmetric. No focal fluid collection or inflammation. IMPRESSION: No focal abnormality of the neck.
== END | disposition home or self-care (01) ==
LOC: RADCTMAIN 08:28
PROVIDERS: ATTEND Family Medicine
DX: R22.1 Localized swelling, mass and lump, neck (principal)
CPT/HCPCS: 70491; Q9967

== ENCOUNTER 2021-01-19 20:21 | Emergency (ER) | payer OTHER ==
[2021-01-19 20:26] VITALS: BP 142/97; PULSE 88; RESP 18; TEMP 98.4
[2021-01-19] MEDS ORDERED: ACET/COD 300 MG/30 MG STARTER PACK 6 TAB BTL PO STA (21:21)
--- NOTE | 2021-01-19 21:56 | XR ---
EXAMINATION TYPE: XR nasal bone DATE OF EXAM: 01/19/2021 COMPARISON: NONE HISTORY: Injury with pain. TECHNIQUE: 3 views nasal bones including both lateral projections FINDINGS: No acute displaced nasal bone fracture seen on lateral projections. Overlying bandage or ga uze material is seen. No significant soft tissue swelling noted. There is however suspected acute dis placed fracture superiorly on the lateral view with left sided step-off. IMPRESSION: As above.
--- NOTE | 2021-01-19 22:14 | ED ---
ENT HPI - General Chief complaint: ENT Stated complaint: facial injury Time Seen by Provider: 01/19/21 21:11 Source: patient Mode of arrival: ambulatory Limitations: no limitations - History of Present Illness Initial comments: 35-year-old male presents to emergency Department with a chief complaint of a facial injury. Patient reports she picked up her daughter and she fell directly on her nose with her head. Patient reports she feels like her nose is broken. She denies any significant bony deformities. She reports the pain is sharp 06/20. She denies taking medication to alleviate the symptoms. This occurred about one hour prior to arrival. No loss of consciousness. No blurry vision. No nausea vomiting diarrhea. She did report some bleeding from the right nostril which has since resolved. - Related Data Home Medications Medication Instructions Recorded Confirmed Albuterol Inhaler (Mhu) [Ventolin 1 - 2 puff INHALATION RT-QID PRN 05/24/17 07/21/19 Hfa Inhaler (Mhu)] Albuterol Nebulized [Ventolin 2.5 mg INHALATION RT-QID PRN 07/21/19 07/21/19 Nebulized] lisinopriL [Zestril] 10 mg PO DAILY 07/21/19 07/21/19 predniSONE [Deltasone] 40 mg PO DAILY 07/21/19 07/21/19 Previous Rx's Medication Instructions Recorded predniSONE 50 mg PO DAILY 3 Days #3 tab 07/01/20 Allergies Allergy/AdvReac Type Severity Reaction Status Date / Time amoxicillin Allergy Rash/Hives Verified 01/19/21 20:26 Penicillins Allergy Rash/Hives Verified 01/19/21 20:26 Review of Systems ROS Statement: Those systems with pertinent positive or pertinent negative responses have been documented in the HPI. ROS Other: All systems not noted in ROS Statement are negative. Past Medical History Past Medical History: Asthma Additional Past Medical History / Comment(s): pyelonephritis History of Any Multi-Drug Resistant Organisms: None Reported Past Surgical History: No Surgical Hx Reported Past Anesthesia/Blood Transfusion Reactions: No Reported Reaction Past Psychological History: Anxiety, Depression Smoking Status: Never smoker Past Alcohol Use History: None Reported Past Drug Use History: None Reported - Past Family History Father Family Medical History: No Reported History General Exam Limitations: no limitations General appearance: alert, in no apparent distress Head exam: Present: atraumatic, normocephalic, normal inspection Eye exam: Present: normal appearance, PERRL, EOMI Pupils: Present: normal accommodation ENT exam: Present: normal exam, normal oropharynx (No septal hematoma. Tenderness near the bridge of nose.), mucous membranes moist Neck exam: Present: normal inspection, full ROM. Absent: tenderness Respiratory exam: Present: normal lung sounds bilaterally. Absent: respiratory distress Cardiovascular Exam: Present: regular rate, normal rhythm, normal heart sounds Extremities exam: Present: normal inspection, full ROM. Absent: tenderness Back exam: Present: normal inspection, full ROM. Absent: tenderness Neurological exam: Present: alert, oriented X3 Psychiatric exam: Present: normal affect, normal mood Skin exam: Present: warm, dry, intact, normal color Course Vital Signs 01/19/21 20:22 Temperature 98.4 F Pulse Rate 88 Respiratory 18 Rate Blood Pressure 142/97 O2 Sat by Pulse 98 Oximetry Medical Decision Making - Medical Decision Making 35-year-old female presents to emergency department with a complaint of nose pain. On physical examination, she has tenderness at the bridge of the nose. No septal hematoma. No epistaxis at this time. X-ray reveals a nasal bone fracture with mild displacement. Patient was given Tylenol 3 for pain control. She was also given Augmentin per . Patient will be discharged with outpatient follow-up to ENT. Return parameters discussed with patient was understanding and agreeable. Case discussed with Disposition Clinical Impression: Nasal bone fracture, Nose injury Disposition: HOME SELF-CARE Condition: Stable Instructions (If sedation given, give patient instructions): Nasal Fracture (ED) Additional Instructions: Alternate between Tylenol and Motrin for pain control. Follow-up with an ENT specialist. Return to emergency department if symptoms worsen. Is patient prescribed a controlled substance at d/c from ED?: No Referrals: Keven Mitchell [Primary Care Provider] - 1-2 days Jaiden Casanova MD [STAFF PHYSICIAN] - 1-2 days Time of Disposition: 22:19
== END 2021-01-19 23:36 | disposition home or self-care (01) ==
LOC: EC 20:21
DX: S02.2XXA Fracture of nasal bones, initial encounter for closed fracture (principal); J45.909 Unspecified asthma, uncomplicated; F32.9 Major depressive disorder, single episode, unspecified; F41.9 Anxiety disorder, unspecified; Z88.0 Allergy status to penicillin; Z79.52 Long term (current) use of systemic steroids; W19.XXXA Unspecified fall, initial encounter
CPT/HCPCS: 70160; 99284

== ENCOUNTER → 2021-09-13 | Outpatient (CLI) | payer OTHER | END | disposition home or self-care (01) | LOC: LABWHC1 12:09 | PROVIDERS: ATTEND Family Medicine | DX: Z20.822 Contact with and (suspected) exposure to COVID-19 (principal); J45.909 Unspecified asthma, uncomplicated | CPT/HCPCS: U0003; C9803 ==

== ENCOUNTER 2022-04-30 08:10 | Emergency (ER) | payer OTHER ==
[2022-04-30 08:24] VITALS: BP 161/92; PULSE 134; RESP 20; TEMP 97.9
[2022-04-30 09:03] LABS: Appearance,Urine Clear (Clear); Bilirubin,Urine Negative (Negative); Blood,Urine Negative (Negative); Color,Urine Yellow; Glucose,Urine (UA) Negative (Negative); Ketones,Urine Negative (Negative); Leukocyte Esterase,Urine Negative (Negative); Nitrite,Urine Negative (Negative); PH, Urine 6.5 (5.0-8.0); Protein,Urine Negative (Negative); Urobilinogen,Urine <2.0 mg/dL (<2.0)
--- NOTE | 2022-04-30 10:13 | US ---
EXAMINATION TYPE: Transabdominal DATE OF EXAM: 04/30/2022 9:19 AM COMPARISON: NONE CLINICAL HISTORY: pain. Spotting x 4 days, cramping since last ultrasound in March. . in 2017. EXAM PERFORMED: Transabdominal (TA) EXAM MEASUREMENTS: GESTATIONAL AGE / DATING Physician Established: Not yet established Dates by LMP: 02/18/22 (10 weeks/1 days) EDC: 11/25/22 Dates by First Scan: No previous this is first scan Dates by Current Scan for: (11 weeks/0 days) EDC: 11/19/22 MATERNAL ANATOMY Uterus: 11.5 x 8.6 x 8.0 cm Right Ovary: 3.6 x 2.0 x 2.1 cm Left Ovary: 3.7 x 2.4 x 2.6 cm. Complex cyst seen measuring 2.4 x 2.0 x 1.9 cm Post CDS / Adnexa: WNL Presence of free fluid: No Presence of corpus luteal cyst: Possible corpus luteal cyst in left ovary Presence of subchorionic bleed: No GESTATION / SURVEY CRL: 4.1cm (11 weeks/0 days) Yolk Sac (normal less than 6mm): 3.8mm Heart Rate: 172 bpm Rhythm: Normal IUP: Viable IUP Date of LMP: 02/18/22 Beta HcG (if available): Not available at this time IMPRESSION: 1. Single intrauterine gestation estimated at 11 weeks 0 days gestation based on crown-rump length. C ardiac activity measures 172 bpm. 2. Complex cyst left ovary
--- NOTE | 2022-04-30 10:26 | ED ---
Abdominal Pain HPI - General Chief Complaint: Abdominal Pain Stated Complaint: 10wks preg, cramping Time Seen by Provider: 04/30/22 08:28 Source: patient, RN notes reviewed Mode of arrival: ambulatory Limitations: no limitations - History of Present Illness Initial Comments: This a 36-year-old female presents emergency Department chief complaint of left- sided intermittent abdominal discomfort. Patient states she is non she is scheduled follow-up with INF[facility] DISEASE TECHNICIAN in 8 days but states she is concerned with the intermittent pain. Patient had approximately one month ago. she did have noted left ovarian cyst. she denies any significant vaginal bleeding denies any dysuria hematuria and no other complaints. - Related Data Home Medications Medication Instructions Recorded Confirmed Albuterol Inhaler [Ventolin Hfa 1 - 2 puff INHALATION RT-QID PRN 05/24/17 04/30/22 Inhaler] Budesonide-Formot 160-4.5 Mcg 2 puff INHALATION RT-BID 04/30/22 04/30/22 [Symbicort 160-4.5 Mcg Inhaler] Vits96/Iron Fum/Folic 1 tab PO DAILY 04/30/22 04/30/22 [ Tablet] Allergies Allergy/AdvReac Type Severity Reaction Status Date / Time amoxicillin Allergy Rash/Hives Verified 04/30/22 08:52 Penicillins Allergy Rash/Hives Verified 04/30/22 08:52 Review of Systems ROS Statement: Those systems with pertinent positive or pertinent negative responses have been documented in the HPI. ROS Other: All systems not noted in ROS Statement are negative. Past Medical History Past Medical History: Asthma Additional Past Medical History / Comment(s): pyelonephritis History of Any Multi-Drug Resistant Organisms: None Reported Past Surgical History: No Surgical Hx Reported Past Anesthesia/Blood Transfusion Reactions: No Reported Reaction Past Psychological History: Anxiety, Depression Smoking Status: Never smoker Past Alcohol Use History: None Reported Past Drug Use History: None Reported - Past Family History Father Family Medical History: No Reported History General Exam Limitations: no limitations General appearance: alert, in no apparent distress, anxious Head exam: Present: atraumatic, normocephalic, normal inspection Eye exam: Present: normal appearance, PERRL, EOMI. Absent: scleral icterus, conjunctival injection, periorbital swelling ENT exam: Present: normal exam, mucous membranes moist Neck exam: Present: normal inspection. Absent: tenderness, meningismus, lymphadenopathy Respiratory exam: Present: normal lung sounds bilaterally. Absent: respiratory distress, wheezes, rales, rhonchi, stridor Cardiovascular Exam: Present: regular rate, normal rhythm, normal heart sounds. Absent: systolic murmur, diastolic murmur, rubs, gallop, clicks GI/Abdominal exam: Present: soft, normal bowel sounds. Absent: distended, tenderness, guarding, rebound, rigid Course Vital Signs 04/30/22 08:18 Temperature 97.9 F Pulse Rate 134 H Respiratory 20 Rate Blood Pressure 161/92 O2 Sat by Pulse 98 Oximetry Medical Decision Making - Medical Decision Making Ultrasound shows single live IUP 11 weeks patient is does have a complex left ovarian cyst. Patient will follow-up with [facility] return parameters discussed. - Lab Data Lab Results 04/30/22 Range/Units 08:40 Urine Color Yellow Urine Appearance Clear (Clear) Urine pH 6.5 (5.0-8.0) Ur Specific [place] 1.010 (1.001-1.035) Urine Protein Negative (Negative) Urine Glucose (UA) Negative (Negative) Urine Ketones Negative (Negative) Urine Blood Negative (Negative) Urine Nitrite Negative (Negative) Urine Bilirubin Negative (Negative) Urine Urobilinogen <2.0 (<2.0) mg/dL Ur Leukocyte Esterase Negative (Negative) Disposition Clinical Impression: , Left ovarian cyst Disposition: HOME SELF-CARE Condition: Stable Instructions (If sedation given, give patient instructions): (ED) Additional Instructions: Please return to the Emergency Department if symptoms worsen or any other concerns. Is patient prescribed a controlled substance at d/c from ED?: No Referrals: Keven Mitchell [Primary Care Provider] - 1-2 days Time of Disposition: 10:26
== END 2022-04-30 10:42 | disposition home or self-care (01) ==
LOC: EC 08:10
DX: O34.81 Maternal care for other abnormalities of pelvic organs, first trimester (principal); N83.202 Unspecified ovarian cyst, left side; O99.511 Diseases of the respiratory system complicating pregnancy, first trimester; J45.909 Unspecified asthma, uncomplicated; Z3A.11 11 weeks gestation of pregnancy; Z79.51 Long term (current) use of inhaled steroids; Z88.0 Allergy status to penicillin
CPT/HCPCS: 76801; 76817; 81003; 99284

== ENCOUNTER → 2022-06-06 | Outpatient (CLI) | payer OTHER ==
[2022-06-08 11:49] LABS: Alpha Fetoprotein 27.8 ng/mL; Alpha Fetoprotein (M.O.M) 0.95; B-HCG (M.O.M.) 0.93; Human Chorionic Gonadotropin 28.3 IU/mL; Inhibin A (M.O.M.) 1.41; Interpretation SeeBelow; Maternal Age at EDD (Yrs) 35; Smoker Not Provided; Unconjugated Estriol (M.O.M.) 1.11
== END | disposition home or self-care (01) ==
LOC: LABWHC1 16:28
PROVIDERS: ATTEND Obstetrics & Gynecology
DX: Z34.82 Encounter for supervision of other normal pregnancy, second trimester (principal); Z3A.00 Weeks of gestation of pregnancy not specified
CPT/HCPCS: 36415; 82105; 82677; 84702; 86336

== ENCOUNTER 2022-09-17 14:21 | Outpatient (CLI) | payer OTHER ==
[2022-09-17 15:32] VITALS: RESP 16
[2022-09-17 15:37] VITALS: PULSE 87; TEMP 97.2
--- NOTE | 2022-09-23 02:26 | P.MSEPDOC ---
Presenting Problems - Arrival Data Date of Arrival on Unit: 09/17/22 Time of Arrival on Unit: 14:21 Mode of Transport: Ambulatory - Complaint OB-Reason for Admission/Chief Complaint: Pain, Other Comment: constipation Medical History - Information : 2 Para: 1 Term: 1 : 0 Abortions: Spontaneous or Elective: 0 Number of Living Children: 1 - Gestational Age Gestational Age by SHARA (wks/days): 31 Weeks and 0 Days Review of Systems - Review of Systems Constitutional: No problems Breast: No problems ENT: No problems Cardiovascular: No problems Respiratory: No problems Gastrointestinal: Constipation Genitourinary: No problems Musculoskeletal: No problems Neurological: No problems Skin: No problems Vital Signs - Temperature Temperature: 97.2 F Temperature Source: Temporal Artery Scan - Pulse Right Brachial Pulse Rate: 87 Pulse Assessment Method: Automatic Cuff - Respirations Respiratory Rate: 16 Oxygen Delivery Method: Room Air Medical Screen Scoring - Assessment - Baby A Baseline FHR: 125 Heart Rate - NICHD Category: Category I (Normal) Physician Notification - Physician Notified Physician Notified Date: 09/17/22 Physician Notified Time: 15:00 Physician: Nini Domingo Order Received: Yes - Notification Comment Comment: d/c down to ER for further evaluation Maternal Triage Index - Maternal Triage Index Presenting for scheduled procedure w/no complaint: No - Stat/Priority 1 Stat Priority 1: No - Urgent/Priority 2 Urgent Priority 2: No - Prompt/Priority 3 Prompt Priority 3: No - Non-Urgent/Priority 4 Non-Urgent Priority 4: Yes Criteria Met for Priority 4: constipation Disposition - Disposition OB Disposition: Discharge to home Discharge Date: 09/17/22 Discharge Time: 15:15 I agree with the RN Medical Screening Exam: Yes Case reviewed; plan agreed upon as documented in EMR&OBIX.: Yes Diagnosis: CONSTIPATION, UNSPECIFIED
== END 2022-09-17 15:15 | disposition home or self-care (01) ==
LOC: FBPOP 14:21
PROVIDERS: ATTEND Obstetrics & Gynecology
DX: O26.893 Other specified pregnancy related conditions, third trimester (principal); Z3A.31 31 weeks gestation of pregnancy; K59.00 Constipation, unspecified; Z88.0 Allergy status to penicillin
CPT/HCPCS: 59025; G0463; 99213

== ENCOUNTER 2022-09-17 15:11 | Emergency (ER) | payer OTHER ==
[2022-09-17 15:42] VITALS: TEMP 99
[2022-09-17] MEDS ORDERED: SODIUM CHLORIDE 0.9% 1,000 ML IV STA (16:47)
[2022-09-17] MEDS ORDERED: DOCUSATE 100 MG CAP PO STA (16:48)
[2022-09-17] MEDS ORDERED: ONDANSETRON 4 MG/2 ML VIAL IVP STA (17:06)
[2022-09-17 17:20] LABS: Basophils % (A) 0 %; Eosinophils # (A) 0.2 k/uL (0-0.7); Eosinophils % (A) 1 %; HCT 35.9 % (34.0-46.0); HGB 12.3 gm/dL (11.4-16.0); Lymphocytes # (A) 1.7 k/uL (1.0-4.8); Lymphocytes % (A) 12 %; MCHC 34.3 g/dL (31.0-37.0); MCV 81.6 fL (80.0-100.0); Mean Platelet Volume 7.6; Monocytes # (A) 0.5 k/uL (0-1.0); Monocytes % (A) 3 %; Neutrophils # (A) 11.2 k/uL (1.3-7.7); Neutrophils % (A) 80 %; Platelet Count 279 k/uL (150-450); WBC 13.9 k/uL (3.8-10.6)
[2022-09-17 17:31] LABS: ALT 16 U/L (4-34); AST 19 U/L (14-36); African American GFR (CKD) >90 (>60 ml/min/1.73 sqM); Albumin 3.6 g/dL (3.5-5.0); Alkaline Phosphatase 73 U/L (38-126); Anion Gap 5 mmol/L; Blood Urea Nitrogen 9 mg/dL (7-17); Calcium 8.7 mg/dL (8.4-10.2); Carbon Dioxide 21 mmol/L (22-30); Chloride 108 mmol/L (98-107); Glucose 77 mg/dL (74-99); Lipase 67 U/L (23-300); Non-African American GFR(CKD) >90 (>60 ml/min/1.73 sqM); Potassium 4.1 mmol/L (3.5-5.1); Sodium 134 mmol/L (137-145); Total Bilirubin 0.4 mg/dL (0.2-1.3); Total Protein 5.9 g/dL (6.3-8.2)
--- NOTE | 2022-09-17 17:51 | ED ---
Abdominal Pain HPI - General Chief Complaint: Abdominal Pain Stated Complaint: ABD Pain unrelated to ,31 weeks Time Seen by Provider: 09/17/22 16:40 Source: patient Mode of arrival: ambulatory Limitations: no limitations - History of Present Illness Initial Comments: Patient is A0 female at 31 weeks who presents to the ED with chief complaint of abdominal pain. Patient was evaluated on the OB floor after baby check. Patient states since her third trimester she has experienced a lot of constipation. Currently on Colace twice a day. Patient states she has not had a bowel movement in the past 5 days and during this time she has felt increased abdominal pressure which has been painful today. Has not taken any Tylenol for pain. She reports nausea which is not unusual for her. No vomiting, fever, chills. No burning with urination, trouble urinating, blood in the urine. No history of bowel instruction. Abdominal surgical history includes . MD Complaint: abdominal pain - Related Data Home Medications Medication Instructions Recorded Confirmed Albuterol Inhaler [Ventolin Hfa 1 - 2 puff INHALATION RT-QID PRN 05/24/17 09/17/22 Inhaler] Budesonide-Formot 160-4.5 Mcg 2 puff INHALATION RT-BID 04/30/22 09/17/22 [Symbicort 160-4.5 Mcg Inhaler] Vits96/Iron Fum/Folic 1 tab PO DAILY 04/30/22 09/17/22 [ Tablet] Docusate [Colace] 100 mg PO DAILY 09/17/22 09/17/22 Magnesium Oxide [Magnesium] 1,000 mg PO DAILY 09/17/22 09/17/22 Allergies Allergy/AdvReac Type Severity Reaction Status Date / Time amoxicillin Allergy Rash/Hives Verified 09/17/22 15:21 Penicillins Allergy Rash/Hives Verified 09/17/22 15:21 Review of Systems ROS Statement: Those systems with pertinent positive or pertinent negative responses have been documented in the HPI. ROS Other: All systems not noted in ROS Statement are negative. Past Medical History Past Medical History: Asthma Additional Past Medical History / Comment(s): pyelonephritis History of Any Multi-Drug Resistant Organisms: None Reported Past Surgical History: No Surgical Hx Reported Past Anesthesia/Blood Transfusion Reactions: No Reported Reaction Past Psychological History: Anxiety, Depression Smoking Status: Never smoker Past Alcohol Use History: None Reported Past Drug Use History: None Reported - Past Family History Father Family Medical History: No Reported History General Exam Limitations: no limitations General appearance: alert, in no apparent distress Eye exam: Present: normal appearance, PERRL, EOMI. Absent: scleral icterus, conjunctival injection, periorbital swelling Respiratory exam: Present: normal lung sounds bilaterally. Absent: respiratory distress, wheezes, rales, rhonchi, stridor Cardiovascular Exam: Present: regular rate, normal rhythm, normal heart sounds. Absent: systolic murmur, diastolic murmur, rubs, gallop, clicks GI/Abdominal exam: Present: soft, normal bowel sounds. Absent: distended, tenderness, guarding, rebound, rigid Neurological exam: Present: alert, oriented X3, CN II-XII intact Psychiatric exam: Present: normal affect, normal mood Skin exam: Present: warm, dry, intact, normal color. Absent: rash Course Vital Signs 09/17/22 09/17/22 15:39 18:08 Temperature 99.0 F Pulse Rate 97 85 Respiratory 16 18 Rate Blood Pressure 118/71 118/74 O2 Sat by Pulse 97 95 Oximetry Medical Decision Making - Medical Decision Making This is a 37 year old female presenting with abdominal pain. Patient well-appearing and in no apparent distress. Vitals stable. Afebrile. No vaginal bleeding. Already cleared by OB floor. The abdomen is soft and nontend er. With presentation, normal vital signs, normal physical exam, pain likely due to constipation. With patient being I do want to avoid radiation exposure. Will obtain labs. Discussed trialing fluid bolus and enema. If patient has relief, no imaging necessary. Patient agreeable. Laboratory studies obtained and significant for mild leukocytosis at 13.9, likely a stress reaction. Patient given milk of magnesia enema. She was able to have a large bowel movement and felt significant relief. Patient will be discharged with strict return parameters. She is instructed to increase fluid and fiber intake. Dr. Colin is my attending. - Lab Data Result diagrams: 09/17/22 17:10 09/17/22 17:10 Lab Results 09/17/22 09/17/22 Range/Units 17:10 17:10 WBC 13.9 H (3.8-10.6) k/uL RBC 4.40 (3.80-5.40) m/uL Hgb 12.3 (11.4-16.0) gm/dL Hct 35.9 (34.0-46.0) % MCV 81.6 (80.0-100.0) fL MCH 28.0 (25.0-35.0) pg MCHC 34.3 (31.0-37.0) g/dL RDW 13.0 (11.5-15.5) % Plt Count 279 (150-450) k/uL MPV 7.6 Neutrophils % 80 % Lymphocytes % 12 % Monocytes % 3 % Eosinophils % 1 % Basophils % 0 % Neutrophils # 11.2 H (1.3-7.7) k/uL Lymphocytes # 1.7 (1.0-4.8) k/uL Monocytes # 0.5 (0-1.0) k/uL Eosinophils # 0.2 (0-0.7) k/uL Basophils # 0.0 (0-0.2) k/uL Sodium 134 L (137-145) mmol/L Potassium 4.1 (3.5-5.1) mmol/L Chloride 108 H (98-107) mmol/L Carbon Dioxide 21 L (22-30) mmol/L Anion Gap 5 mmol/L BUN 9 (7-17) mg/dL Creatinine 0.54 (0.52-1.04) mg/dL Est GFR (CKD-EPI)AfAm >90 (>60 ml/min/1.73 sqM) Est GFR (CKD-EPI)NonAf >90 (>60 ml/min/1.73 sqM) Glucose 77 (74-99) mg/dL Calcium 8.7 (8.4-10.2) mg/dL Total Bilirubin 0.4 (0.2-1.3) mg/dL AST 19 (14-36) U/L ALT 16 (4-34) U/L Alkaline Phosphatase 73 (38-126) U/L Total Protein 5.9 L (6.3-8.2) g/dL Albumin 3.6 (3.5-5.0) g/dL Lipase 67 (23-300) U/L Disposition Clinical Impression: Abdominal pain, Nausea, Third trimester , Constipation Disposition: HOME SELF-CARE Condition: Good Instructions (If sedation given, give patient instructions): Constipation (ED), High Fiber Diet (ED), Abdominal Pain in (ED) Additional Instructions: Increase fluid intake significantly to help constipation. Eating a high-fiber diet. Continue home prescription of Colace. Return to the emergency department if you experience new, concerning, or worsening symptoms. Is patient prescribed a controlled substance at d/c from ED?: No Referrals: Nonstaff,Physician [Primary Care Provider] - 1-2 days Time of Disposition: 17:51
[2022-09-17 18:09] VITALS: BP 118/74; PULSE 85; RESP 18
== END 2022-09-17 19:00 | disposition home or self-care (01) ==
LOC: EC 15:11
DX: O26.893 Other specified pregnancy related conditions, third trimester (principal); O99.513 Diseases of the respiratory system complicating pregnancy, third trimester; O99.343 Other mental disorders complicating pregnancy, third trimester; R11.10 Vomiting, unspecified; Z3A.31 31 weeks gestation of pregnancy; K59.00 Constipation, unspecified; J45.909 Unspecified asthma, uncomplicated; F41.9 Anxiety disorder, unspecified; F32.A Depression, unspecified; Z79.51 Long term (current) use of inhaled steroids; Z79.899 Other long term (current) drug therapy; Z88.0 Allergy status to penicillin
CPT/HCPCS: 99284 ×2; 96374 ×2; 96361 ×4; 36415; 80053; 83690; 85025; J2405

== ENCOUNTER 2022-10-01 09:22 | Emergency (ER) | payer OTHER ==
[2022-10-01 09:28] VITALS: TEMP 98.5
[2022-10-01] MEDS ORDERED: NA PHOS,M-B/NA PHOS,DI-BA 133 ML ENEMA RECTAL STA (12:06)
--- NOTE | 2022-10-01 12:09 | ED ---
General Adult HPI - General Chief complaint: Abdominal Pain Stated complaint: possible bowel obstruction-revisit Time Seen by Provider: 10/01/22 11:57 Source: patient, RN notes reviewed, old records reviewed Mode of arrival: ambulatory Limitations: no limitations - History of Present Illness Initial comments: 37-year-old well-appearing female presents to the emergency room with complaints of constipation. Was seen last week for the same and given milk of magnesia enema which improved her symptoms. Patient states has been taking Colace but states she feels constipated again. She also feels bladder pressure but denies any dysuria. No fevers no vomiting. Patient is 33 weeks . Denies any vaginal bleeding or discharge. -: days(s) Location: abdomen Severity scale (1-10): 4 Associated Symptoms: other (bladder pressure) - Related Data Home Medications Medication Instructions Recorded Confirmed Albuterol Inhaler [Ventolin Hfa 2 puff INHALATION RT-QID PRN 05/24/17 10/01/22 Inhaler] Budesonide-Formot 160-4.5 Mcg 2 puff INHALATION RT-BID 04/30/22 10/01/22 [Symbicort 160-4.5 Mcg Inhaler] Vits96/Iron Fum/Folic 1 tab PO DAILY 04/30/22 10/01/22 [ Tablet] Docusate [Colace] 100 mg PO BID 09/17/22 10/01/22 Magnesium Oxide [Magnesium] 1,000 mg PO DAILY 09/17/22 10/01/22 Allergies Allergy/AdvReac Type Severity Reaction Status Date / Time amoxicillin Allergy Rash/Hives Verified 10/01/22 13:39 Penicillins Allergy Rash/Hives Verified 10/01/22 13:39 Review of Systems ROS Statement: Those systems with pertinent positive or pertinent negative responses have been documented in the HPI. ROS Other: All systems not noted in ROS Statement are negative. Past Medical History Past Medical History: Asthma Additional Past Medical History / Comment(s): pyelonephritis History of Any Multi-Drug Resistant Organisms: None Reported Past Surgical History: No Surgical Hx Reported Past Anesthesia/Blood Transfusion Reactions: No Reported Reaction Past Psychological History: Anxiety, Depression Smoking Status: Never smoker Past Alcohol Use History: None Reported Past Drug Use History: None Reported - Past Family History Father Family Medical History: No Reported History General Exam Limitations: no limitations General appearance: alert, in no apparent distress Head exam: Present: atraumatic, normocephalic Eye exam: Present: normal appearance. Absent: scleral icterus, conjunctival injection, periorbital swelling Respiratory exam: Absent: respiratory distress, accessory muscle use Cardiovascular Exam: Present: tachycardia GI/Abdominal exam: Present: distended. Absent: tenderness, rigid Extremities exam: Present: normal capillary refill. Absent: pedal edema Neurological exam: Present: alert, oriented X3 Psychiatric exam: Present: normal affect, normal mood Skin exam: Present: warm, dry, normal color. Absent: cyanosis, diaphoretic, petechiae, pallor Course Vital Signs 10/01/22 10/01/22 09:25 13:56 Temperature 98.5 F Pulse Rate 117 H 120 H Respiratory 20 18 Rate Blood Pressure 117/75 113/76 O2 Sat by Pulse 100 98 Oximetry Medical Decision Making - Medical Decision Making Patient presents with constipation. Was seen for same on September 17 and given an enema with relief. Denies any nausea vomiting. No fevers. Urinalysis shows no evidence of infection, 4+ ketones. Denies any vaginal bleeding or pelvic pain. [employer] [employer] staff came down for heart tones showing 122. Patient feeling better after bowel movement with fleets enema. Patient encouraged to increase her fluid intake which may improve her constipation issues. Continue the Colace, add prune juice and fiber to her diet. Follow up with her [employer] [employer] [employer] primary care doctor as needed. Case discussed with Dr. Chapa - Lab Data Lab Results 10/01/22 Range/Units 12:31 Urine Color Yellow Urine Appearance Clear (Clear) Urine pH 6.0 (5.0-8.0) Ur Specific [place] 1.013 (1.001-1.035) Urine Protein Trace H (Negative) Urine Glucose (UA) Negative (Negative) Urine Ketones 4+ H (Negative) Urine Blood Negative (Negative) Urine Nitrite Negative (Negative) Urine Bilirubin Negative (Negative) Urine Urobilinogen <2.0 (<2.0) mg/dL Ur Leukocyte Esterase Negative (Negative) Disposition Clinical Impression: Constipation Disposition: HOME SELF-CARE Condition: Good Instructions (If sedation given, give patient instructions): Constipation (ED), Fleet Enema (ED) Additional Instructions: Increase your fluid intake, Also tried prune juice. Increase your physical activity in your daily routine to prevent constipation. Add fiber to diet such as fruits, vegetables, beans, and whole grains. Continue Colace as prescribed. Follow-up with the primary care doctor and [facility] [employer] as needed. Is patient prescribed a controlled substance at d/c from ED?: No Referrals: Jorge Luis Wilson MD [Primary Care Provider] - 1-2 days
[2022-10-01 12:57] LABS: Appearance,Urine Clear (Clear); Bilirubin,Urine Negative (Negative); Blood,Urine Negative (Negative); Color,Urine Yellow; Glucose,Urine (UA) Negative (Negative); Ketones,Urine 4+ (Negative); Leukocyte Esterase,Urine Negative (Negative); Nitrite,Urine Negative (Negative); Protein,Urine Trace (Negative); Specific Gravity,Urine 1.013 (1.001-1.035); Urobilinogen,Urine <2.0 mg/dL (<2.0)
[2022-10-01 13:56] VITALS: BP 113/76; PULSE 120; RESP 18
== END 2022-10-01 14:13 | disposition home or self-care (01) ==
LOC: EC 09:22
DX: K59.00 Constipation, unspecified (principal); J45.909 Unspecified asthma, uncomplicated; F41.9 Anxiety disorder, unspecified; F32.A Depression, unspecified; Z88.0 Allergy status to penicillin; Z79.899 Other long term (current) drug therapy
CPT/HCPCS: 81003; 99284

== ENCOUNTER 2022-10-06 11:35 | Outpatient (CLI) | payer OTHER ==
[2022-10-06 12:46] VITALS: BP 106/73; PULSE 88; RESP 16; TEMP 97.2
--- NOTE | 2022-10-12 06:55 | P.MSEPDOC ---
Presenting Problems - Arrival Data Date of Arrival on Unit: 10/06/22 Time of Arrival on Unit: 11:55 Mode of Transport: Ambulatory - Complaint OB-Reason for Admission/Chief Complaint: Decreased Movement Comment: 33 5/7 weeks. history of c/s . hx of constripation with this preg Medical History - Information : 2 Para: 1 Term: 1 : 0 Abortions: Spontaneous or Elective: 0 Number of Living Children: 1 - Gestational Age Gestational Age by SHARA (wks/days): 33 Weeks and 5 Days Review of Systems - Review of Systems Constitutional: No problems Breast: No problems ENT: No problems Cardiovascular: No problems Respiratory: No problems Gastrointestinal: Constipation Genitourinary: No problems Musculoskeletal: No problems Neurological: No problems Skin: No problems Vital Signs - Temperature Temperature: 97.2 F Temperature Source: Temporal Artery Scan - Pulse Right Radial Pulse Rate: 88 Pulse Assessment Method: Automatic Cuff - Respirations Respiratory Rate: 16 Oxygen Delivery Method: Room Air - Blood Pressure Right Arm Blood Pressure: 106/73 Blood Pressure Mean: 84 Blood Pressure Source: Automatic Cuff Medical Screen Scoring - Assessment - Baby A Baseline FHR: 140 Heart Rate - NICHD Category: Category I (Normal) NST: Reactive Physician Notification - Physician Notified Physician Notified Date: 10/06/22 Physician Notified Time: 12:40 Physician: Nini Domingo Order Received: Yes (march discharge home with instructions) - Notification Comment Comment: kick counts as prescribed. starting biweekly nst's in office Maternal Triage Index - Scheduled/Requesting Priority 5 Scheduled/Requesting Priority 5: Yes Criteria Met for Priority 5: not feeling baby move. reactive nst. pt feeling baby now. vs stable. had bm this am. Disposition - Disposition OB Disposition: Discharge to home, Written follow up instructions reviewed Discharge Date: 10/06/22 Discharge Time: 12:45 I agree with the RN Medical Screening Exam: Yes Case reviewed; plan agreed upon as documented in EMR&OBIX.: Yes Diagnosis: DECREASED MOVEMENTS, THIRD TRIMESTER, UNSP
== END 2022-10-06 12:45 | disposition home or self-care (01) ==
LOC: FBPOP 11:35
PROVIDERS: ATTEND Obstetrics & Gynecology
DX: O26.893 Other specified pregnancy related conditions, third trimester (principal); Z3A.33 33 weeks gestation of pregnancy; O36.8130 Decreased fetal movements, third trimester, not applicable or unspecified; Z88.0 Allergy status to penicillin
CPT/HCPCS: 59025; G0463; 99213

== ENCOUNTER 2022-11-19 20:37 | Outpatient (CLI) | payer OTHER ==
[2022-11-19 21:36] VITALS: BP 138/74; PULSE 88; RESP 17; TEMP 96.4
--- NOTE | 2022-11-20 19:36 | P.MSEPDOC ---
Presenting Problems - Arrival Data Date of Arrival on Unit: 11/20/22 Time of Arrival on Unit: 06:00 Mode of Transport: Ambulatory - Complaint OB-Reason for Admission/Chief Complaint: Other Comment: Pt presents to triage with c/o of sharp cervical pain around 40 minutes ago. that pt reports lasted for 5 minutes and resolved with a position change but returned. when patient stood up. Medical History - Information : 2 Para: 1 Term: 1 : 0 Abortions: Spontaneous or Elective: 0 Number of Living Children: 1 - Gestational Age Gestational Age by SHARA (wks/days): 40 Weeks and 1 Days - History Complications: Prior Review of Systems - Review of Systems Constitutional: No problems Breast: No problems ENT: No problems Cardiovascular: No problems Respiratory: No problems Gastrointestinal: No problems Genitourinary: No problems Musculoskeletal: No problems Neurological: No problems Skin: No problems Vital Signs - Temperature Temperature: 96.4 F Temperature Source: Temporal Artery Scan - Pulse Right Brachial Pulse Rate: 88 Pulse Assessment Method: Automatic Cuff - Respirations Respiratory Rate: 17 Oxygen Delivery Method: Room Air O2 Sat by Pulse Oximetry: 98 - Blood Pressure Right Arm Blood Pressure: 138/74 Blood Pressure Mean: 95 Blood Pressure Source: Automatic Cuff Medical Screen Scoring - Cervical Exam Dilation (cm): 0 Effacement (%): 50 Station: -2 Membranes: Intact - Uterine Contractions Frequency From (mins): 5 Frequency To (mins): 6 Duration From (seconds): 100 Duration To (seconds): 120 Intensity: Mild Resting: Soft to palpation - Assessment - Baby A Baseline FHR: 140 Heart Rate - NICHD Category: Category I (Normal) NST: Reactive Physician Notification - Physician Notified Physician Notified Date: 11/19/22 Physician Notified Time: 21:12 Physician: Nini Domingo Order Received: Yes - Notification Comment Comment: Dr Domingo given report on pt. Pt c/o. VS WNL. Reactive NST. Contractions q5-6. minutes. Pt coping well and does not complain of contraction pain. Vag exam of. closed/thick/-2. Pt sched for R C/S at 0800 tomorrow 11/20/22. Orders received to d/c pt. to home. Maternal Triage Index - Non-Urgent/Priority 4 Non-Urgent Priority 4: Yes Criteria Met for Priority 4: Pt presents to triage with c/o of sharp cervical pain around 40 minutes ago. that pt reports lasted for 5 minutes and resolved with a position change but returned. when patient stood up. Disposition - Disposition OB Disposition: Discharge to home Discharge Date: 11/19/22 Discharge Time: 21:27 I agree with the RN Medical Screening Exam: Yes Case reviewed; plan agreed upon as documented in EMR&OBIX.: Yes Diagnosis: RELATED CONDITIONS, UNSPECIFIED, THIRD TRIMESTER
== END 2022-11-19 21:30 | disposition home or self-care (01) ==
LOC: FBPOP 20:37
PROVIDERS: ATTEND Obstetrics & Gynecology
DX: O26.93 Pregnancy related conditions, unspecified, third trimester (principal); Z3A.40 40 weeks gestation of pregnancy; Z88.0 Allergy status to penicillin
CPT/HCPCS: 59025; G0463; 99213

== ENCOUNTER 2022-11-20 06:00 | Inpatient (IN) | payer OTHER ==
[2022-11-20] MEDS ORDERED: CITRIC ACID-SODIUM CITRATE 15 ML CUP PO ONE (06:11)
[2022-11-20] MEDS: LACTATED RINGERS 1,000 ML IV SCH ×2 (06:15→16:34)
[2022-11-20] MEDS ORDERED: LACTATED RINGERS 1,000 ML IV ONE (06:20)
[2022-11-20 06:37] LABS: Basophils % (A) 0 %; Eosinophils # (A) 0.4 k/uL (0-0.7); Eosinophils % (A) 3 %; HCT 35.5 % (34.0-46.0); HGB 12.1 gm/dL (11.4-16.0); Hypochromasia Slight; Lymphocytes # (A) 1.9 k/uL (1.0-4.8); Lymphocytes % (A) 15 %; MCH 26.9 pg (25.0-35.0); MCV 79.1 fL (80.0-100.0); Monocytes # (A) 0.7 k/uL (0-1.0); Monocytes % (A) 5 %; Neutrophils # (A) 9.8 k/uL (1.3-7.7); Neutrophils % (A) 74 %; Platelet Count 282 k/uL (150-450); RBC 4.49 m/uL (3.80-5.40); RDW 14.1 % (11.5-15.5); WBC 13.2 k/uL (3.8-10.6)
[2022-11-20] MEDS ORDERED: OXYTOCIN 30 UNITS/500 ML NS BAG IV ONE (07:55)
[2022-11-20] MEDS ORDERED: KETOROLAC 15 MG/ML 1 ML VIAL ONE (07:55)
[2022-11-20] MEDS ORDERED: MORPHINE SULFATE (PF) 0.3 MG/0.3 ML SYR ONE (07:55)
[2022-11-20] MEDS ORDERED: ONDANSETRON 4 MG/2 ML VIAL ONE (07:55)
[2022-11-20] MEDS ORDERED: diphenhydrAMINE 25 MG CAP PO PRN (08:42)
[2022-11-20] MEDS ORDERED: SIMETHICONE 80 MG CHEWABLE PO PRN (08:42)
[2022-11-20] MEDS ORDERED: NALOXONE 0.4 MG/ML 1 ML VIAL IV PRN ×2 (08:42→08:44)
[2022-11-20] MEDS ORDERED: ZOLPIDEM 5 MG TAB PO PRN (08:42)
[2022-11-20] MEDS ORDERED: ONDANSETRON 4 MG/2 ML VIAL IVP PRN (08:42)
[2022-11-20] MEDS ORDERED: METOCLOPRAMIDE 5 MG/ML 2 ML VIAL IVP PRN (08:42)
[2022-11-20] MEDS ORDERED: diphenhydrAMINE 50 MG/ML 1 ML VIAL IVP PRN ×2 (08:42)
[2022-11-20] MEDS ORDERED: diphenhydrAMINE 50 MG CAP PO PRN (08:42)
[2022-11-20] MEDS ORDERED: NALBUPHINE 10 MG/ML (1 ML AMP) IV PRN (08:44)
[2022-11-20] MEDS ORDERED: OXYTOCIN 30 UNITS/500 ML NS 30 UNIT in SALINE 1 500ML.BAG IV SCH (08:45)
--- NOTE | 2022-11-20 08:46 | P.OP ---
Date of Procedure: 11/20/22 Preoperative Diagnosis: 1. at 40 weeks 1 day 2. [id number] Postoperative Diagnosis: same Procedure(s) Performed: Repeat low transverse Anesthesia: spinal Surgeon: Eve Johnson Mobile Home Technician #1: Tutu Singer Estimated Blood Loss (ml): 400 IV fluids (ml): 800 Urine output (ml): 300 Pathology: none sent Condition: stable Disposition: floor Operative Findings: Viable female, Apgars 9, 9, weight 9 lbs. 2 oz. Normal uterus, tubes, ovaries Description of Procedure: Patient was taken to the operating room where spinal anesthesia was found be adequate. She was prepped and draped in normal sterile fashion in dorsal supine position with a leftward tilt. Pfannenstiel skin incision was made the scalpel and carried through to the underlying layer of fascia with the scalpel. Fascia was incised in midline and carried bilaterally with the Mercado scissors. The superior aspect of the fascial incision was grasped with [place] clamps elevated and the underlying rectus muscles dissected off with the Mercado's. Attention was then turned to inferior aspect of same incision which in a similar fashion was grasped tented up and the underlying rectus muscles dissected off with the Mercado's. The rectus muscles were the midline and the peritoneum was identified tented up and entered sharply with the scalpel. The incision was extended superiorly and inferiorly with good visualization of the bladder. The bladder blade was inserted and the vesicouterine peritoneum was incised the Metzenbaums then carried bilaterally and bladder flap created digitally. A low transverse incision was then made on the uterus with the scalpel. This was carried bilaterally and digital manner. 's head delivered atraumatically, nose and mouth bulb suctioned, cord clamped and cut, handed off to waiting nurses. Apgars 9,9, weight 9 lbs. 2 oz. Placenta delivered manually, intact with three-vessel cord. The uterus is exteriorized and cleared of all clots and debris. The uterine incision was closed with 0 Vicryl in a running locked fashion. Second layer of the same sutures used in imbricating fashion to obtain excellent hemostasis. Both ovaries and tubes appeared normal. The uterus was placed back into the abdomen. The peritoneum was reapproximated using 2-0 Vicryl in a running fashion. The muscles were reapproximated using 2- 0 Vicryl in interrupted fashion. The fascia was reapproximated using 0 Vicryl in a running fashion. The subcutaneous tissues closed with 3-0 Vicryl running fashion. The skin was closed emili. Patient tolerated the procedure well, sponge and instrument counts were correct times 2 and she was taken to the recovery room in stable condition.
[2022-11-20] MEDS: ACETAMINOPHEN TAB 500 MG TAB PO SCH ×3 (14:13→23:07)
[2022-11-20] MEDS: IBUPROFEN 600 MG TAB PO SCH ×2 (14:36→20:12)
[2022-11-20] MEDS ORDERED: KETOROLAC 15 MG/ML 1 ML VIAL IVP SCH (18:00)
[2022-11-20] MEDS: SENNOSIDES-DOCUSATE SODIUM 1 EACH TAB PO SCH (20:13)
[2022-11-21] MEDS: IBUPROFEN 600 MG TAB PO SCH ×4 (02:12→20:02)
[2022-11-21 06:58] LABS: Basophils % (A) 0 %; Eosinophils # (A) 0.3 k/uL (0-0.7); Eosinophils % (A) 3 %; HCT 32.9 % (34.0-46.0); HGB 10.5 gm/dL (11.4-16.0); Lymphocytes % (A) 9 %; MCH 25.3 pg (25.0-35.0); MCV 78.8 fL (80.0-100.0); Mean Platelet Volume 8.4; Monocytes # (A) 0.4 k/uL (0-1.0); Monocytes % (A) 4 %; Neutrophils # (A) 9.8 k/uL (1.3-7.7); Neutrophils % (A) 82 %; Platelet Count 223 k/uL (150-450); RBC 4.17 m/uL (3.80-5.40); RDW 14.8 % (11.5-15.5)
--- NOTE | 2022-11-21 07:01 | P.PN ---
Progress Note - Text Progress Note Date: 11/21/22 Postoperative day 1 status post section under spinal anesthesia, and intrathecal morphine given for postoperative analgesia, patient doing well, there is no anesthesia related complications, Patient had no headache, vital signs stable , Assessment and plan= postop day 1 status post , doing well there is no anesthesia related complication.
[2022-11-21] MEDS: SENNOSIDES-DOCUSATE SODIUM 1 EACH TAB PO SCH ×2 (08:34→20:02)
--- NOTE | 2022-11-21 09:27 | P.HPOB ---
History of Present Illness H&P Date: 11/20/22 Chief Complaint: Repeat low transverse 37-year-old presents at 20 weeks and 1 day for repeat low transverse C- section. Review of Systems All systems: negative Constitutional: Denies chills, Denies fever Eyes: denies blurred vision, denies pain Ears, nose, mouth and throat: Denies headache, Denies sore throat Cardiovascular: Denies chest pain, Denies shortness of breath Respiratory: Denies cough Gastrointestinal: Denies abdominal pain, Denies diarrhea, Denies nausea, Denies vomiting Genitourinary: Denies dysuria, Denies hematuria Musculoskeletal: Denies myalgias Integumentary: Denies pruritus, Denies rash Neurological: Denies numbness, Denies weakness Psychiatric: Denies anxiety, Denies depression Endocrine: Denies fatigue, Denies weight change Past Medical History Past Medical History: Asthma Additional Past Medical History / Comment(s): pyelonephritis History of Any Multi-Drug Resistant Organisms: None Reported Past Surgical History: Section Past Anesthesia/Blood Transfusion Reactions: No Reported Reaction Past Psychological History: Anxiety, Depression Additional Psychological History / Comment(s): no current meds Smoking Status: Never smoker Past Alcohol Use History: None Reported Past Drug Use History: None Reported - Past Family History Father Family Medical History: No Reported History Medications and Allergies Home Medications Medication Instructions Recorded Confirmed Type Albuterol Inhaler [Ventolin Hfa 2 puff INHALATION RT-QID PRN 05/24/17 11/20/22 History Inhaler] Budesonide-Formot 160-4.5 Mcg 2 puff INHALATION RT-BID 04/30/22 11/20/22 History [Symbicort 160-4.5 Mcg Inhaler] Vits96/Iron Fum/Folic 1 tab PO DAILY 04/30/22 11/20/22 History [ Tablet] Magnesium Oxide [Magnesium] 1,000 mg PO DAILY 09/17/22 11/20/22 History Psyllium Husk [Metamucil] 0.4 gm PO DAILY 11/16/22 11/20/22 History Allergies Allergy/AdvReac Type Severity Reaction Status Date / Time amoxicillin Allergy Rash/Hives Verified 11/20/22 06:09 Penicillins Allergy Rash/Hives Verified 11/20/22 06:09 Exam Osteopathic Statement: *. No significant issues noted on an osteopathic structural exam other than those noted in the History and Physical/Consult. Vital Signs Temp Pulse Pulse Resp BP Pulse Ox 11/21/22 08:00 98.0 F 92 16 116/58 96 11/21/22 04:00 98.1 F 80 14 117/76 98 11/20/22 23:19 98.4 F 84 14 120/77 98 11/20/22 20:00 97.9 F 75 14 111/75 99 11/20/22 16:00 97.6 F 81 16 119/79 99 11/20/22 12:00 98.6 F 101 H 16 118/69 96 11/20/22 10:44 96.4 F L 78 16 104/57 98 11/20/22 10:14 76 16 113/67 98 11/20/22 09:44 83 16 111/69 98 11/20/22 09:29 96.5 F L 85 16 109/66 99 Intake and Output 11/20/22 11/21/22 11/21/22 22:59 06:59 14:59 Output Total 1850 800 Balance -1850 -800 Output: Urine 1850 800 Uretheral (Ham) 1850 Other: # Voids 0 0 2 Heart: Regular rate and rhythm Lungs: Clear to auscultation bilaterally Abdomen: Soft, nontender Extremities: Negative Homans sign Results Result Diagrams: 11/21/22 06:36 Abnormal Lab Results - Last 24 Hours (Table) 11/21/22 Range/Units 06:36 WBC 12.0 H (3.8-10.6) k/uL Hgb 10.5 L (11.4-16.0) gm/dL Hct 32.9 L (34.0-46.0) % MCV 78.8 L (80.0-100.0) fL Neutrophils # 9.8 H (1.3-7.7) k/uL Assessment and Plan (1) Previous section Current Visit: Yes Status: Acute Code(s): Z98.891 - HISTORY OF UTERINE SCAR FROM PREVIOUS SURGERY SNOMED Code(s): 672901994 Plan: 1. repeat low transverse
--- NOTE | 2022-11-21 09:36 | P.PNOBGPC ---
Subjective - Subjective Principal diagnosis: Status post repeat low transverse postop day 1 Interval history: Patient seen and examined. Denies nausea, vomiting, chest pain, shortness of breath or calf pain. Patient reports: Reports appetite normal, Reports voiding normally, Reports pain well controlled, Reports ambulating normally : doing well Objective - Vital Signs Latest vital signs: Vital Signs Temp Pulse Pulse Resp BP Pulse Ox 11/21/22 08:00 98.0 F 92 16 116/58 96 11/21/22 04:00 98.1 F 80 14 117/76 98 11/20/22 23:19 98.4 F 84 14 120/77 98 11/20/22 20:00 97.9 F 75 14 111/75 99 11/20/22 16:00 97.6 F 81 16 119/79 99 11/20/22 12:00 98.6 F 101 H 16 118/69 96 11/20/22 10:44 96.4 F L 78 16 104/57 98 11/20/22 10:14 76 16 113/67 98 11/20/22 09:44 83 16 111/69 98 Intake and Output 11/20/22 11/21/22 11/21/22 22:59 06:59 14:59 Output Total 1850 800 Balance -1850 -800 Output: Urine 1850 800 Uretheral (Ham) 1850 Other: # Voids 0 0 2 - Exam Lungs: bilateral: normal Chest: Normal S1, Normal S2 Extremities: Present: normal Abdomen: Present: normal appearance, soft. Absent: distention, tenderness Incision: Present: normal, dry, intact Uterus: Present: normal, firm - Labs Labs: Abnormal Lab Results - Last 24 Hours (Table) 11/21/22 Range/Units 06:36 WBC 12.0 H (3.8-10.6) k/uL Hgb 10.5 L (11.4-16.0) gm/dL Hct 32.9 L (34.0-46.0) % MCV 78.8 L (80.0-100.0) fL Neutrophils # 9.8 H (1.3-7.7) k/uL Assessment and Plan (1) Previous section Current Visit: Yes Status: Resolved Code(s): Z98.891 - HISTORY OF UTERINE SCAR FROM PREVIOUS SURGERY SNOMED Code(s): 314944872 (2) Status post repeat low transverse section Current Visit: Yes Status: Acute Code(s): Z98.891 - HISTORY OF UTERINE SCAR FROM PREVIOUS SURGERY SNOMED Code(s): 730052408 Plan: 1. Continue postop care
[2022-11-21] MEDS: ACETAMINOPHEN TAB 500 MG TAB PO SCH ×4 (11:00→23:38)
[2022-11-22] MEDS: IBUPROFEN 600 MG TAB PO SCH ×2 (02:49→05:51)
[2022-11-22] MEDS: ACETAMINOPHEN TAB 500 MG TAB PO SCH ×2 (05:52→09:16)
--- NOTE | 2022-11-22 08:37 | P.DS ---
Providers Date of admission: 11/20/22 06:00 Expected date of discharge: 11/22/22 Attending physician: Eve Johnson Primary care physician: Robinson Talbot - Discharge Diagnosis(es) (1) Previous section Current Visit: Yes Status: Resolved (2) Status post repeat low transverse section Current Visit: Yes Status: Acute Hospital Course: Patient presented for repeat low transverse . She underwent this procedure without complication uneventful post operative course. Her pain is well-controlled. She denies nausea, vomiting, chest pain, shortness of breath or calf pain. She is ambulating voiding without difficulty. Uterus is firm and lochia is minimal. Patient will be discharged home postoperative day #2 in stable condition to follow-up with me in one week. Plan - Discharge Summary Discharge Rx Participant: Yes New Discharge Prescriptions: New Ibuprofen [Motrin] 600 mg PO Q6H #30 tab oxyCODONE HCL [OxyIR] 5 mg PO Q4HR PRN #12 tab PRN Reason: Pain Scale 4 - 6 No Action Albuterol Inhaler [Ventolin Hfa Inhaler] 2 puff INHALATION RT-QID PRN PRN Reason: Wheezing Budesonide-Formot 160-4.5 Mcg [Symbicort 160-4.5 Mcg Inhaler] 2 puff INHALATION RT-BID Psyllium Husk [Metamucil] 0.4 gm PO DAILY Vits96/Iron Fum/Folic [ Tablet] 1 tab PO DAILY Magnesium Oxide [Magnesium] 1,000 mg PO DAILY Discharge Medication List Albuterol Inhaler [Ventolin Hfa Inhaler] 2 puff INHALATION RT-QID PRN 05/24/17 [History] Budesonide-Formot 160-4.5 Mcg [Symbicort 160-4.5 Mcg Inhaler] 2 puff INHALATION RT-BID 04/30/22 [History] Vits96/Iron Fum/Folic [ Tablet] 1 tab PO DAILY 04/30/22 [History] Magnesium Oxide [Magnesium] 1,000 mg PO DAILY 09/17/22 [History] Psyllium Husk [Metamucil] 0.4 gm PO DAILY 11/16/22 [History] Ibuprofen [Motrin] 600 mg PO Q6H #30 tab 11/22/22 [Rx] oxyCODONE HCL [OxyIR] 5 mg PO Q4HR PRN #12 tab 11/22/22 [Rx] Follow up Appointment(s)/Referral(s): Eve Johnson DO [Doctor of Osteopathic Medicine] - 4 Weeks Discharge Disposition: HOME SELF-CARE
[2022-11-22] MEDS: SENNOSIDES-DOCUSATE SODIUM 1 EACH TAB PO SCH (09:17)
[2022-11-22 10:21] VITALS: BP 113/75; PULSE 89; RESP 16; TEMP 97.6
== END 2022-11-22 12:05 | disposition home or self-care (01) | DRG 788 ==
LOC: 4FBP 06:00
PROVIDERS: ADMIT Obstetrics & Gynecology; ATTEND Obstetrics & Gynecology
PROC: 10D00Z1 Extraction of Products of Conception, Low, Open Approach (ICD-10-PCS; principal; 2022-11-20 08:00)
DX: O34.211 Maternal care for low transverse scar from previous cesarean delivery (principal); J45.909 Unspecified asthma, uncomplicated; O99.52 Diseases of the respiratory system complicating childbirth; N85.8 Other specified noninflammatory disorders of uterus; Z37.0 Single live birth; Z3A.40 40 weeks gestation of pregnancy; Z28.310 Unvaccinated for COVID-19; Z79.51 Long term (current) use of inhaled steroids; Z79.899 Other long term (current) drug therapy; Z88.0 Allergy status to penicillin
CPT/HCPCS: 85025; 86850; 86900; 86901

== ENCOUNTER → 2023-04-11 | Outpatient (CLI) | payer OTHER ==
--- NOTE | 2023-04-30 11:42 | EM ---
14 Day Event monitor note: Patient wore an event monitor for 5.7 days from 04/11/2023 through 04/18/2006/30/2023. Findings: Patient's baseline heart rate was normal sinus rhythm. There were no signficant atrial fibrillation, atrial flutter, or ventricular tachycardia episodes. There were no significant pauses greater than 2 seconds. There were a total of 20 patient activated and automatically captured events. Majority of these were chest pain which corresponded with a sinus rhythm. There were no PACs, PVCs. Conclusions: 14 day event monitor only worn for 5.7 days showing normal sinus rhythm with patient activated events of chest pain corresponding with sinus rhythm. [facility]
== END | disposition home or self-care (01) ==
LOC: RADECHMAIN 12:06
PROVIDERS: ATTEND Family Medicine
DX: R07.9 Chest pain, unspecified (principal); Z82.49 Family history of ischemic heart disease and other diseases of the circulatory system
CPT/HCPCS: 93270

== ENCOUNTER → 2023-04-16 | Outpatient (CLI) | payer OTHER ==
--- NOTE | 2023-04-17 09:54 | CA ---
Transthoracic Echo Report Name: Prachi Kelly Age: 37 Gender: F : 1985 Exam Date: 04/16/2023 13:48 Exam Location: [facility] Ht (in): 68 Wt (lb): 200 Ordering Physician: Robinson Talbot MD Attending/Referring Phys: Antione ELIZONDO Community Outreach Specialist Najma Viveros RDCS Procedure CPT: Indications: R07.9 Z82.49 Cardiac Hx: Technical Quality: Fair Contrast 1: Total Dose (mL): Contrast 2: Total Dose (mL): MEASUREMENTS (Male / Female) Normal Values 2D ECHO LV Diastolic Diameter PLAX 4.3 cm 4.2 - 5.9 / 3.9 - 5.3 cm LV Systolic Diameter PLAX 2.6 cm IVS Diastolic Thickness 1.0 cm 0.6 - 1.0 / 0.6 - 0.9 cm LVPW Diastolic Thickness 0.9 cm 0.6 - 1.0 / 0.6 - 0.9 cm LV Relative Wall Thickness 0.4 LA Volume 50.8 cm??? 18 - 58 / 22 - 52 cm??? M-MODE Aortic Root Diameter MM 2.4 cm LA Systolic Diameter MM 4.5 cm LA Ao Ratio MM 1.9 DOPPLER AV Peak Velocity 171.4 cm/s AV Peak Gradient 11.8 mmHg AV Mean Velocity 121.4 cm/s AV Mean Gradient 6.4 mmHg AV Velocity Time Integral 32.8 cm LVOT Peak Velocity 146.8 cm/s LVOT Peak Gradient 8.6 mmHg LVOT Velocity Time Integral 26.5 cm MV Area PHT 2.7 cm??? Mitral E Point Velocity 126.3 cm/s Mitral A Point Velocity 107.5 cm/s Mitral E to A Ratio 1.2 MV Deceleration Time 276.9 ms MV E' Velocity 8.0 cm/s Mitral E to MV E' Ratio 15.8 TR Peak Velocity 242.2 cm/s TR Peak Gradient 23.5 mmHg Right Ventricular Systolic Press 27.4 mmHg FINDINGS Left Ventricle Normal Left ventricular size, wall thickness, systolic function with no obvious regional wall motion abnormalities. Normal Left ventricular diastolic filling pattern. Left ventricular ejection fraction is estimated at 55-60 %. Right Ventricle Normal right ventricular size and function. Right ventricular systolic pressure within normal limits. Right Atrium Normal right atrial size. Left Atrium Normal left atrial size. Mitral Valve Structurally normal mitral valve. Mild mitral regurgitation. Aortic Valve Trileaflet aortic valve. No aortic valve stenosis or regurgitation. Tricuspid Valve Structurally normal tricuspid valve. Mild tricuspid regurgitation. Pulmonic Valve Trace pulmonic regurgitation. Pericardium No pericardial effusion. Aorta Normal size aortic root and proximal ascending aorta. CONCLUSIONS Normal LV systolic function Mild mitral regurgitation Previewed by: Dr. Juan Newton MD (Electronically Signed) Final Date: 17 April 2023 09:53
== END | disposition home or self-care (01) ==
LOC: RADECHMAIN 13:40
PROVIDERS: ATTEND Family Medicine
DX: I34.0 Nonrheumatic mitral (valve) insufficiency (principal); Z82.49 Family history of ischemic heart disease and other diseases of the circulatory system
CPT/HCPCS: 93306